=== PATIENT | male | born 2000 | race Two or more races ===

== ENCOUNTER 2020-05-11 12:25 | Emergency (ER) | payer MEDICAID, OTHER ==
[~2020-05-11] VITALS: Ht 182.9 cm; Wt 83.9 kg
[2020-05-11 13:56] VITALS: BP 120/71
== END 2020-05-11 14:28 | disposition home or self-care (01) ==
LOC: ER 12:25
DX: S61.210A Laceration without foreign body of right index finger without damage to nail, initial encounter (principal); W26.8XXA Contact with other sharp object(s), not elsewhere classified, initial encounter; Y93.89 Activity, other specified; Y92.89 Other specified places as the place of occurrence of the external cause; Y99.8 Other external cause status
CPT/HCPCS: 12001

== ENCOUNTER 2021-01-07 07:10 | Emergency (ER) | payer MEDICAID, OTHER ==
[~2021-01-07] VITALS: Ht 185.4 cm; Wt 81.6 kg
[2021-01-07 07:42] VITALS: BP 115/64
== END 2021-01-07 08:02 | disposition home or self-care (01) ==
LOC: ER 07:10
DX: S43.402A Unspecified sprain of left shoulder joint, initial encounter (principal); F17.210 Nicotine dependence, cigarettes, uncomplicated; V49.9XXA Car occupant (driver) (passenger) injured in unspecified traffic accident, initial encounter; Y93.89 Activity, other specified; Y92.89 Other specified places as the place of occurrence of the external cause; Y99.8 Other external cause status
CPT/HCPCS: 73030

== ENCOUNTER 2025-06-11 10:36 | Inpatient (IN) | payer MEDICAID, OTHER ==
[~2025-06-11] VITALS: Ht 180.3 cm; Wt 88.3 kg
[2025-06-11 11:27] LABS: Urine Protein, UAD Negative (Negative)
[2025-06-11 11:33] LABS: Cannabinoid Screen, Urine Pos (NEGATIVE); Opiate Scree,Urine Neg (NEGATIVE)
[2025-06-11 11:38] LABS: Hematocrit 45.4 % (41.0-53.0); Hemoglobin 15.6 g/dL (13.5-17.5); Mean Corpuscular Hemoglobin 29.9 pg (28.0-32.0); Mean Corpuscular Volume 87.3 fL (80.0-100.0); Nucleated Red Blood Cells % 0.1 %
[2025-06-11 11:40] LABS: Amphetamine Screen, Urine Neg (NEGATIVE); Barbiturate Scree,Urine Neg (NEGATIVE); Benzodiazephine Screen, Urine Neg (NEGATIVE); Cocaine Screen, Urine Neg (NEGATIVE); Phencyclidine Screen, Urine Neg (NEGATIVE)
--- NOTE | 2025-06-11 11:42 | ED.PDOC ---
GI ASSESSMENT HPI Comments Patient is a 24-year-old male with no significant past medical history presented to the ED with a chief complaint of abdominal pain for the last 2 days. Patient reports on Wednesday morning he started to have right lower quadrant abdominal pain which was sharp, crampy, nonradiating, severe in intensity following which she took ibuprofen and it helped relieve the pain associated with the loose bowel movements. Patient again had pain at the same spot on Wednesday following which she took [place] and it improved the pain but he still had the pain throughout the day. Today again in the morning patient has started to have right lower quadrant abdominal pain following which she came to the ER for further evaluation. Patient denied any nausea, vomiting, fever or chills. Does report of having loose bowel movements in the last 2 days, denies any blood in the stool. Chief Complaint: Abdominal Pain Time Seen by MD: 10:59 Primary Care Provider: ABBY RIVERA Reviewed Notes: Nurses Notes, Medications, Allergies Allergies: Coded Allergies: No Known Drug Allergy (Verified Allergy, Unknown, 01/07/21) Information Source: Patient Mode of Arrival: Ambulatory Past Medical History PAST MEDICAL HISTORY: Denies Surgical History: Denies all surgeries Family History Family History: Reviewed,noncontributory to illness Social History Smoker: Cigarettes Alcohol: Denies ETOH Use Drugs: Marijuana Lives In: Home Constitutional: denies: chills, diaphoresis, fatigue, fever, malaise, sweats, weakness, others EENTM: denies: blurred vision, double vision, ear bleeding, ear discharge, ear drainage, ear pain, ear ringing, eye pain, eye redness, hearing loss, mouth pain, mouth swelling, nasal discharge, nose bleeding, nose congestion, nose pain, photophobia, tearing, throat pain, throat swelling, voice changes, others Respiratory: denies: cough, hemoptysis, orthopnea, SOB at rest, shortness of breath, SOB with excertion, stridor, wheezing, others Cardiovascular: denies: chest pain, dizzy spells, diaphoresis, Dyspnea on exertion, edema, irregular heart beat, left arm pain, lightheadedness, palpitations, PND, syncope, others Gastrointestinal: reports: abdominal pain, diarrhea Genitourinary: denies: burning, dysuria, flank pain, frequency, hematuria, incontinence, penile discharge, penile sore, pain, testicle pain, testicle swelling, urgency, others Neurological: denies: dizziness, fainting, headache, left sided numbness, left sided weakness, numbness, paresthesia, pre-existing deficit, right sided numbness, right sided weakness, seizure, speech problems, tingling, tremors, weakness, others Musculoskeletal: denies: back pain, gout, joint pain, joint swelling, muscle pain, muscle stiffness, neck pain, others Integumetry: denies: bruises, change in color, change in hair/nails, dryness, laceration, lesions, lumps, rash, wounds, others Allergic/Immunocompromised: denies: Difficulty Healing, Frequent Infections, Hives, Itching, others Hematologic/Lymphatic: denies: anemia, blood clots, easy bleeding, easy bruising, swollen glands, others Endocrine: denies: excessive hunger, excessive sweating, excessive thirst, excessive urination, flushing, intolerance to cold, intolerance to heat, unexplained weight gain, unexplained weight loss, others Psychiatric: denies: anxiety, bipolar disorder, depression, hopeless, panic disorder, schizophrenia, sleepless, suicidal, others Physical Exam General Appearance: No Apparent Distress, Normal HEENT: Normal ENT Inspection, Pharynx Normal, TMs Normal Neck: Full Range of Motion, Non-Tender, Normal, Normal Inspection Respiratory: Chest Non-Tender, Lungs Clear, No Accessory Muscle Use, No Respiratory Distress, Normal Breath Sounds Cardiovascular: No Edema, No JVD, No Murmur, No Gallop, Normal Peripheral Pulses, Regular Rate/Rhythm Breast Exam: Deferred Gastrointestinal: RLQ, Tenderness (At the McBurney's point), Other (Negative Rovsing sign, psoas sign, no guarding or rebound tenderness) Genitalia: Deferred Pelvic: Deferred Rectal: Deferred Extremities: No calf tenderness, Normal capillary refill, Normal inspection, Normal range of motion, Non-tender, No pedal edema 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 Was a procedure done?: No GI differential Dx Differential Diagnosis: Appendicitis, Diverticular disease, Gastroenteritis, Urinary Obstruction, Food Poisoning, Kidney Stone X-Ray, Labs, Meds, VS Vital Signs Date Time Temp Pulse Resp B/P (MAP) Pulse Ox O2 Delivery O2 Flow Rate FiO2 06/11/25 13:34 98.0 88 17 132/87 (102) 97 98.0 06/11/25 13:34 86 16 97 Room Air 06/11/25 10:48 97.8 86 16 123/69 (87) 98 97.8 06/11/25 10:43 97.8 86 16 123/69 (87) 98 97.8 Lab Test 06/11/25 11:13 06/11/25 10:00 Range/Units White Blood Count 5.7 4.4-10.8 10^3/uL Red Blood Count 5.20 4.5-5.90 10^6/uL Hemoglobin 15.6 13.5-17.5 g/dL Hematocrit 45.4 41.0-53.0 % Mean Corpuscular Volume 87.3 80.0-100.0 fL Mean Corpuscular Hemoglobin 29.9 28.0-32.0 pg Mean Corpuscular Hemoglobin Concent 34.3 32.0-36.0 g/dL Red Cell Distribution Width 13.6 11.8-14.3 % Platelet Count 182 140-450 10^3/uL Mean Platelet Volume 8.4 6.9-10.8 fL Neutrophils (%) (Auto) 64.2 37.0-80.0 % Lymphocytes (%) (Auto) 26.9 10.0-50.0 % Monocytes (%) (Auto) 7.5 0.0-12.0 % Eosinophils (%) (Auto) 1.0 0.0-7.0 % Basophils (%) (Auto) 0.4 0.0-2.0 % Neutrophils # (Auto) 3.7 1.6-8.6 10 ^3/uL Lymphocytes # (Auto) 1.5 0.4-5.4 10 ^3/uL Monocytes # (Auto) 0.4 0-1.3 10 ^3/uL Eosinophils # (Auto) 0.1 0-0.8 10 ^3/uL Basophils # (Auto) 0 0-0.2 10 ^3/uL Nucleated Red Blood Cells 0.1 % Sodium Level 142 136-145 mmol/L Potassium Level 4.2 3.5-5.1 mmol/L Chloride Level 108 H 98-107 mmol/L Carbon Dioxide Level 26 20-31 mmol/L Anion Gap 8 5-15 Blood Urea Nitrogen 7 L 9-23 mg/dL Creatinine 0.82 0.700-1.30 mg/dL Glomerular Filtration Rate Calc 124 >90 mL/min BUN/Creatinine Ratio 8.5 L 10.0-20.0 Serum Glucose 92 74-106 mg/dL Calcium Level 9.8 8.7-10.4 mg/dL Urine Color Light-yellow Yellow Urine Clarity Clear Clear Urine pH 5.5 5.0-9.0 Urine Specific [place] 1.017 1.001-1.035 Urine Protein Negative Negative Urine Ketones Negative Negative Urine Blood Negative Negative /uL Urine Nitrite Negative Negative Urine Bilirubin Negative Negative Urine Urobilinogen Normal Negative mg/dL Urine Leukocyte Esterase Negative Negative /uL Urine RBC 2 0 - 3 /hpf Urine Microscopic WBC 2 0-3 /HPF Urine Squamous Epithelial Cells Few <5 /hpf Urine Bacteria None seen None Seen /hpf Urine Mucus Few None Seen Urine Glucose Normal Normal mg/dL Urine Opiates Screen Neg NEGATIVE Urine Fentanyl Screen Neg NEGATIVE Urine Barbiturates Screen Neg NEGATIVE Urine Phencyclidine Screen Neg NEGATIVE Urine Amphetamines Screen Neg NEGATIVE Urine Benzodiazepines Screen Neg NEGATIVE Urine Cocaine Screen Neg NEGATIVE Urine Cannabinoids Screen Pos NEGATIVE Current Medications Medications (Trade) Dose Ordered Sig/Miguel Route Start Time Stop Time Status Last Admin Ibuprofen (Motrin Tablet) 600 mg ONCE ONCE PO 06/11/25 12:45 06/11/25 12:55 DC 06/11/25 13:18 24-year-old male came in with a right lower quadrant pain, on examination tenderness at the McBurney's point but no rebound tenderness or guarding, CT abdomen without contrast shows moderate right hydronephrosis and 4 mm ureteric calculus with bilateral renal nonobstructive calculi , CBC was grossly normal, BMP was grossly normal, urinalysis was grossly normal. Patient will be admitted and will need further inpatient management as he has moderate hydronephrosis and urology consulted. Patient has been 1 dose of tamsulosin 0.4 mg and IV fluids. Time of 1ST Reevaluation: 13:09 Reevaluation 1ST: Unchanged Patient Education/Counseling: Diagnosis, Treatment Family Education/Counseling: No Family Present SEPSIS Sepsis Screen Date sepsis recognized/suspect: Jun 11, 2025 Time Sepsis recognized/suspect: 1036 Recent Procedure: No On Antibiotic Therapy: No Respiratory Rate >20: No Heart Rate >90: No Temp<36 C (96.8 F) or >38.3 C: No SBP <90 or MAP <65 mmHG: No New Acute Mental Status Change: No Is the patient on CPAP, BIPAP,: No Physician Orders Ct Ab Pel Wo Con-No Oral Or Iv (06/11/25 11:05) Heplock Iv (06/11/25 ) Tamsulosin Hydrochloride (Flomax) (06/11/25 13:45) NS (06/11/25 13:45) Vital Signs Date Time Temp Pulse Resp B/P (MAP) Pulse Ox O2 Delivery O2 Flow Rate FiO2 06/11/25 13:34 98.0 88 17 132/87 (102) 97 98.0 06/11/25 13:34 86 16 97 Room Air 06/11/25 10:48 97.8 86 16 123/69 (87) 98 97.8 06/11/25 10:43 97.8 86 16 123/69 (87) 98 97.8 Laboratory Tests Test 06/11/25 11:13 White Blood Count 5.7 10^3/uL (4.4-10.8) Medications Medications Dose Ordered Sig/Miguel Route Start Time Stop Time Status Last Admin Dose Admin Ibuprofen 600 mg ONCE ONCE PO 06/11/25 12:45 06/11/25 12:55 DC 06/11/25 13:18 Departure 1 Departure Time of Disposition: 13:41 Impression: Primary Impression: Ureteric calculus Additional Impressions: Hydronephrosis, right Abdominal pain Nephrolithiasis Disposition: ADMITTED INPATIENT Condition: Stable Critical Care Note Critical Care Time?: No Stability Stability form required: No Heart Score Heart Score: Heart Score Response (Comments) Value History N/A 0 EKG N/A 0 Age N/A 0 Risk Factors N/A 0 Troponin N/A 0 Total 0 ALEXANDER PANDA RESIDENT Jun 11, 2025 11:42
--- NOTE | 2025-06-11 11:45 | DVH ---
Indication: RLQ abd pain, tender mcburney Technique: CT axial images of the abdomen and pelvis are obtained without contrast. Coronal and sagit [place] reformats were obtained. Radiation Dose Information: CTDI volume is 11.11 mGy. Dose-length product is 603.95 mGy*cm Comparison: None FINDINGS: There is limited interpretation of the abdomen and pelvis without administration of intravenous contr ast. Lung bases demonstrate no pleural effusion. Adrenal glands, spleen, pancreas unremarkable in shape. Liver unremarkable in shape. No CT evidence for cholelithiasis. The right kidney demonstrates moderate right hydroureteronephrosis secondary to a proximal right uret eral calculus measuring 4 mm. Other nonobstructing right renal calculi up to 2 mm. Nonobstructing lef t renal calculi up to 3 mm. Stomach is partially distended. Small bowel loops are normal in caliber. Moderate volume stool in the colon. Normal appendix. Colonic diverticula. Bladder partially distended. Bladder wall thickening with surrounding stranding. Trace free pelvic fl uid. No inguinal lymphadenopathy. No aggressive osseous process. IMPRESSION: Moderate right hydroureteronephrosis secondary to a 4 mm proximal right ureteral calculus. Other nono bstructing bilateral renal calculi as described. Bladder wall thickening with surrounding stranding likely representing cystitis. Small amount of free pelvic fluid. Colonic diverticula Other findings as described.
[2025-06-11 11:47] LABS: Potassium 4.2 mmol/L (3.5-5.1); Sodium 142 mmol/L (136-145)
[2025-06-11 11:48] LABS: Calcium 9.8 mg/dL (8.7-10.4); Chloride 108 mmol/L (98-107)
[2025-06-11 11:53] LABS: BUN/Creatinine Ratio 8.5 (10.0-20.0); Glucose 92 mg/dL (74-106)
[2025-06-11 11:54] LABS: Blood Urea Nitrogen 7 mg/dL (9-23)
[2025-06-11 12:08] LABS: Anion Gap 8 (5-15); Carbon Dioxide 26 mmol/L (20-31)
[2025-06-11] MEDS: IBUPROFEN 600 MG TAB PO ONE (13:18)
[2025-06-11] MEDS: SODIUM CHLORIDE 0.9% 1,000 ML IV ONE ×2 (14:10→16:15)
[2025-06-11] MEDS: TAMSULOSIN HYDROCHLORIDE 0.4 MG CAP PO ONE (14:10)
[2025-06-11] MEDS: MANNITOL FTV 25% 12.5 GM/50 ML 50 ML IV ONE (16:15)
--- NOTE | 2025-06-11 16:22 | DVHINCON2 ---
Date of service: Jun 11, 2025 Referring Physician Hospitalist Reason for Consultation right ureteral stone History of Present Illness History Source: Patient Exam Limitations: No limitations HPI 24 yo male with sudden onset right flank pain. No urinary complaint. No fever, chills, headache, nausea or diarrhea. No prior history. CT shows a 4 mm proximal stone with mild hydro. No evidence of UTI. No WILIAN. Past Medical History Cardiac: No pertinent Hx Pulmonary: No pertinent Hx Central Nervous System: No pertinent Hx GI: No pertinent Hx Hemotology/Oncology: No pertinent Hx Hepatobiliary: No pertinent Hx Psychiatric: No pertinent Hx Musculoskeletal: No pertinent Hx Rheumotologic: No pertinent Hx Infectious Disease: No peritnent Hx ENT: No pertinent Hx Renal/: No pertinent Hx Endocrine: No pertinent Hx Dermatology: No pertinent Hx Review of Systems Genitourinary: Pain H&P Exam Vital Signs Vital Signs Date Time Temp Pulse Resp B/P (MAP) Pulse Ox O2 Delivery O2 Flow Rate FiO2 06/11/25 13:34 98.0 88 17 132/87 (102) 97 98.0 06/11/25 13:34 Room Air General Appeara: Well developed, Well nourished, Normal Appearance, Mild distress Eye Exam: bilateral eye Normal inspection, bilateral eye PERRL, bilateral eye EOMI Ear Exam: bilateral ear Auricle normal, bilateral ear Canal normal, bilateral ear TM normal Pulmonary/Respiratory: Normal inspection, Normal breath sounds, Chest non- tender, Lungs clear Cardiovascular/Chest: Normal inspection, Regular rate, Normal Rhythm Abdominal Exam: Normal bowel sounds, Soft, No tenderness, No hepatospenomegaly, No masses Back Exam: Right CVA tenderness Neuro/Mental St: Alert, Oriented Appearance: Appropriate appearance, Appropriate insight Eye contact/ Speech: Cooperative, Good eye contact, Normal speech Skin Exam: Normal inspection, Normal color, Warm/dry Labs/Xrays [address] [address] Ph: [phone] DIAGNOSTIC IMAGING Diagnostic Imaging Report : [id number] Signed PATIENT: KARAN SMITH ACCT: [id number] UNIT: [id number] : 2000 LOC: ER ROOM / BED: / AGE / SEX: 24 / M ADM STATUS: REG ER SERVICE 1105 ORDERING PHYSICIAN: ALEXANDER PANDA RESIDENT PROCEDURE(s): ABPL - CT AB PEL WO CON-NO ORAL OR IV REASON: RLQ abd pain, tender mcburney ORDER NUMBER(s): [id number], ACCESSION NUMBER(s): [id number] Indication: RLQ abd pain, tender mcburney Technique: CT axial images of the abdomen and pelvis are obtained without contrast. Coronal and sagittal reformats were obtained. Radiation Dose Information: CTDI volume is 11.11 mGy. Dose-length product is 603.95 mGy*cm Comparison: None FINDINGS: There is limited interpretation of the abdomen and pelvis without administration of intravenous contrast. Lung bases demonstrate no pleural effusion. Adrenal glands, spleen, pancreas unremarkable in shape. Liver unremarkable in shape. No CT evidence for cholelithiasis. The right kidney demonstrates moderate right hydroureteronephrosis secondary to a proximal right ureteral calculus measuring 4 mm. Other nonobstructing right renal calculi up to 2 mm. Nonobstructing left renal calculi up to 3 mm. Stomach is partially distended. Small bowel loops are normal in caliber. Moderate volume stool in the colon. Normal appendix. Colonic diverticula. Bladder partially distended. Bladder wall thickening with surrounding stranding. Trace free pelvic fluid. No inguinal lymphadenopathy. No aggressive osseous process. IMPRESSION: Moderate right hydroureteronephrosis secondary to a 4 mm proximal right ureteral calculus. Other nonobstructing bilateral renal calculi as described. Bladder wall thickening with surrounding stranding likely representing cystitis. Small amount of free pelvic fluid. Colonic diverticula Other findings as described. ATED BY: DALLAS RATLIFF MD DICTATED DATE/TIME: 06/11/25 1144 SIGNED BY: DALLAS RATLIFF MD SIGNED DATE/TIME: 06/11/25 1144 CC: Labs Test 06/11/25 11:13 06/11/25 10:00 Range/Units White Blood Count 5.7 4.4-10.8 10^3/uL Red Blood Count 5.20 4.5-5.90 10^6/uL Hemoglobin 15.6 13.5-17.5 g/dL Hematocrit 45.4 41.0-53.0 % Mean Corpuscular Volume 87.3 80.0-100.0 fL Mean Corpuscular Hemoglobin 29.9 28.0-32.0 pg Mean Corpuscular Hemoglobin Concent 34.3 32.0-36.0 g/dL Red Cell Distribution Width 13.6 11.8-14.3 % Platelet Count 182 140-450 10^3/uL Mean Platelet Volume 8.4 6.9-10.8 fL Neutrophils (%) (Auto) 64.2 37.0-80.0 % Lymphocytes (%) (Auto) 26.9 10.0-50.0 % Monocytes (%) (Auto) 7.5 0.0-12.0 % Eosinophils (%) (Auto) 1.0 0.0-7.0 % Basophils (%) (Auto) 0.4 0.0-2.0 % Neutrophils # (Auto) 3.7 1.6-8.6 10 ^3/uL Lymphocytes # (Auto) 1.5 0.4-5.4 10 ^3/uL Monocytes # (Auto) 0.4 0-1.3 10 ^3/uL Eosinophils # (Auto) 0.1 0-0.8 10 ^3/uL Basophils # (Auto) 0 0-0.2 10 ^3/uL Nucleated Red Blood Cells 0.1 % Sodium Level 142 136-145 mmol/L Potassium Level 4.2 3.5-5.1 mmol/L Chloride Level 108 H 98-107 mmol/L Carbon Dioxide Level 26 20-31 mmol/L Anion Gap 8 5-15 Blood Urea Nitrogen 7 L 9-23 mg/dL Creatinine 0.82 0.700-1.30 mg/dL Glomerular Filtration Rate Calc 124 >90 mL/min BUN/Creatinine Ratio 8.5 L 10.0-20.0 Serum Glucose 92 74-106 mg/dL Calcium Level 9.8 8.7-10.4 mg/dL Urine Color Light-yellow Yellow Urine Clarity Clear Clear Urine pH 5.5 5.0-9.0 Urine Specific [place] 1.017 1.001-1.035 Urine Protein Negative Negative Urine Ketones Negative Negative Urine Blood Negative Negative /uL Urine Nitrite Negative Negative Urine Bilirubin Negative Negative Urine Urobilinogen Normal Negative mg/dL Urine Leukocyte Esterase Negative Negative /uL Urine RBC 2 0 - 3 /hpf Urine Microscopic WBC 2 0-3 /HPF Urine Squamous Epithelial Cells Few <5 /hpf Urine Bacteria None seen None Seen /hpf Urine Mucus Few None Seen Urine Glucose Normal Normal mg/dL Urine Opiates Screen Neg NEGATIVE Urine Fentanyl Screen Neg NEGATIVE Urine Barbiturates Screen Neg NEGATIVE Urine Phencyclidine Screen Neg NEGATIVE Urine Amphetamines Screen Neg NEGATIVE Urine Benzodiazepines Screen Neg NEGATIVE Urine Cocaine Screen Neg NEGATIVE Urine Cannabinoids Screen Pos NEGATIVE Assessment/Plan Problem List: (1) Ureteric calculus (2) Hydronephrosis, right Plan expulsive measures aggressive fluids strain urine pain meds Plan discussed with: Patient, Other ALONDRA CHAUDHARI CHIEF DATA OFFICER Jun 11, 2025 16:22
[2025-06-11 16:39] VITALS: BP 131/74; PULSE 60; RESP 20; TEMP 98.3; O2SAT 97
[2025-06-11 16:40] VITALS: BP 131/74; PULSE 60; RESP 20; TEMP 98.3; O2SAT 97
[2025-06-11] MEDS: HYDROmorphone HCL 2 MG/ML VL/or syr IV PRN (18:12)
--- NOTE | 2025-06-11 19:49 | DVHHPRES ---
History of Present Illness Resident Creating Document: SAMANTHA VILLELA RESIDENT History of Present Illness Patient is a 24-year-old male who has a past medical history of asthma, presents to the ED with chief complaint of abdominal pain since the last 2 days. The pain is in the right lower quadrant radiating to the right flank,, crampy, 8/10 intensity, did not improve on taking ibuprofen. Patient had the same pain on Wednesday but he took [place] and it improved the pain but today morning the pain started again in the right lower quadrant after which he came to the ER for further evaluation. Patient denies any nausea, fever, chills, vomiting, constipation, but he complains of having diarrhea since 2 days. He does not complain of dysuria, urgency, frequency, he also denies any blood in the urine. He has no known drug allergies. Surgical history: wrist surgery with 2 pins placed Family history: Noncontributory Personal history: Patient smokes 2 cigarettes per day since 16 years old, drinks alcohol socially, uses marijuana every day since 16 years old Constitutional: Denies weight loss, fever and chills. HEENT: Denies changes in vision and hearing. Respiratory: Denies shortness of breath and cough Cardiovascular: Denies chest discomfort or palpitations GI: right lower quadrant pain, Diarrhea : Denies dysuria and urinary frequency. Musculoskeletal: Denies myalgias and joint pain Skin: Denies rash and pruritus. Neurological: Denies dizziness, headache, vision or hearing problems Pulmonary: Asthma Review of Systems Allergies: Coded Allergies: No Known Drug Allergy (Verified Allergy, Unknown, 01/07/21) Medications Current Medications Medications Dose Ordered Sig/Miguel Route Start Time Stop Time Status Last Admin Dose Admin Acetaminophen/ Hydrocodone Bitart 1 tab Q4HPRN PRN PO 06/11/25 16:15 Hydromorphone HCl 0.25 mg Q6HPRN PRN IV 06/11/25 16:15 06/11/25 18:12 0.25 MG Ketorolac Tromethamine 30 mg Q8HPRN PRN IV 06/11/25 16:15 06/16/25 16:14 Tamsulosin HCl 0.4 mg QPM PO 06/12/25 18:00 Exam Vital Signs Vital Signs Date Time Temp Pulse Resp B/P (MAP) Pulse Ox O2 Delivery O2 Flow Rate FiO2 06/11/25 18:12 83 20 130/73 06/11/25 16:40 98.3 97 98.3 06/11/25 13:34 Room Air Exam General: Patient alert and oriented in person, place and time. Patient following commands. HEENT: Normocephalic, atraumatic, moist mucous membranes Respiratory/pulmonary: Clear lungs bilaterally, vesicular murmurs present in almost all lung ang, no associated crackles or wheezes. Cardiovascular: Normal heart sounds S1 and S2 with no associated murmurs Abdomen: Abdomen nondistended, there is pain to palpation in Right Lower Quadrant, no palpable masses. Extremities: There is no peripheral edema present at the lower extremities. Peripheral Pulses: 3+ Radial (R). 3+ Radial (L). 3+ Dorsalis pedis (R). 3+ Dorsalis pedis(L) Skin: No rashes or pruritus, there is no sacral edema present at this time. Neurological: Intact cranial nerves with no focal neurologic deficits Labs/Xrays Labs Test 06/11/25 11:13 06/11/25 10:00 Range/Units White Blood Count 5.7 4.4-10.8 10^3/uL Red Blood Count 5.20 4.5-5.90 10^6/uL Hemoglobin 15.6 13.5-17.5 g/dL Hematocrit 45.4 41.0-53.0 % Mean Corpuscular Volume 87.3 80.0-100.0 fL Mean Corpuscular Hemoglobin 29.9 28.0-32.0 pg Mean Corpuscular Hemoglobin Concent 34.3 32.0-36.0 g/dL Red Cell Distribution Width 13.6 11.8-14.3 % Platelet Count 182 140-450 10^3/uL Mean Platelet Volume 8.4 6.9-10.8 fL Neutrophils (%) (Auto) 64.2 37.0-80.0 % Lymphocytes (%) (Auto) 26.9 10.0-50.0 % Monocytes (%) (Auto) 7.5 0.0-12.0 % Eosinophils (%) (Auto) 1.0 0.0-7.0 % Basophils (%) (Auto) 0.4 0.0-2.0 % Neutrophils # (Auto) 3.7 1.6-8.6 10 ^3/uL Lymphocytes # (Auto) 1.5 0.4-5.4 10 ^3/uL Monocytes # (Auto) 0.4 0-1.3 10 ^3/uL Eosinophils # (Auto) 0.1 0-0.8 10 ^3/uL Basophils # (Auto) 0 0-0.2 10 ^3/uL Nucleated Red Blood Cells 0.1 % Sodium Level 142 136-145 mmol/L Potassium Level 4.2 3.5-5.1 mmol/L Chloride Level 108 H 98-107 mmol/L Carbon Dioxide Level 26 20-31 mmol/L Anion Gap 8 5-15 Blood Urea Nitrogen 7 L 9-23 mg/dL Creatinine 0.82 0.700-1.30 mg/dL Glomerular Filtration Rate Calc 124 >90 mL/min BUN/Creatinine Ratio 8.5 L 10.0-20.0 Serum Glucose 92 74-106 mg/dL Calcium Level 9.8 8.7-10.4 mg/dL Urine Color Light-yellow Yellow Urine Clarity Clear Clear Urine pH 5.5 5.0-9.0 Urine Specific [place] 1.017 1.001-1.035 Urine Protein Negative Negative Urine Ketones Negative Negative Urine Blood Negative Negative /uL Urine Nitrite Negative Negative Urine Bilirubin Negative Negative Urine Urobilinogen Normal Negative mg/dL Urine Leukocyte Esterase Negative Negative /uL Urine RBC 2 0 - 3 /hpf Urine Microscopic WBC 2 0-3 /HPF Urine Squamous Epithelial Cells Few <5 /hpf Urine Bacteria None seen None Seen /hpf Urine Mucus Few None Seen Urine Glucose Normal Normal mg/dL Urine Opiates Screen Neg NEGATIVE Urine Fentanyl Screen Neg NEGATIVE Urine Barbiturates Screen Neg NEGATIVE Urine Phencyclidine Screen Neg NEGATIVE Urine Amphetamines Screen Neg NEGATIVE Urine Benzodiazepines Screen Neg NEGATIVE Urine Cocaine Screen Neg NEGATIVE Urine Cannabinoids Screen Pos NEGATIVE SEPSIS Sepsis Screen Date sepsis recognized/suspect: Jun 11, 2025 Time Sepsis recognized/suspect: 1036 Recent Procedure: No On Antibiotic Therapy: No Respiratory Rate >20: No Heart Rate >90: No Temp<36 C (96.8 F) or >38.3 C: No SBP <90 or MAP <65 mmHG: No New Acute Mental Status Change: No Is the patient on CPAP, BIPAP,: No Physician Orders [place] Iv (06/11/25 ) * Urology Consult (06/11/25 13:47) Admit (06/11/25 15:43) Hydrocodone-Acet 5/325mg Tab ([place] 5/32 (06/11/25 16:15) Hydromorphone Injection (Dilaudid Inject (06/11/25 16:15) Ketorolac Injection (Toradol Injection) (06/11/25 16:15) Strain All Urine (06/11/25 ) Tamsulosin Hydrochloride (Flomax) (06/12/25 18:00) Clear Liq Diet (06/12/25 Dinner) Npo (Nothing By Mouth) Diet (06/12/25 Breakfast) Vital Signs Date Time Temp Pulse Resp B/P (MAP) Pulse Ox O2 Delivery O2 Flow Rate FiO2 06/11/25 18:12 83 20 130/73 06/11/25 16:40 98.3 60 20 131/74 (93) 97 98.3 06/11/25 16:39 98.3 60 20 131/74 (93) 97 98.3 06/11/25 13:34 98.0 88 17 132/87 (102) 97 98.0 06/11/25 13:34 86 16 97 Room Air Laboratory Tests Test 06/11/25 11:13 White Blood Count 5.7 10^3/uL (4.4-10.8) Medications Medications Dose Ordered Sig/Miguel Route Start Time Stop Time Status Last Admin Dose Admin Hydromorphone HCl 0.25 mg Q6HPRN PRN IV 06/11/25 16:15 06/11/25 18:12 0.25 MG Ibuprofen 600 mg ONCE ONCE PO 06/11/25 12:45 06/11/25 12:55 DC 06/11/25 13:18 600 MG Mannitol 50 ml @ 50 mls/hr ONCE ONCE IV 06/11/25 16:15 06/11/25 17:14 DC 06/11/25 16:15 50 MLS/HR Sodium Chloride 1,000 ml @ 1,000 mls/hr Q1H ONCE IV 06/11/25 13:45 06/11/25 14:44 DC 06/11/25 14:10 1,000 MLS/HR Sodium Chloride 1,000 ml @ 1,000 mls/hr Q1H ONCE IV 06/11/25 16:15 06/11/25 17:14 DC 06/11/25 16:15 1,000 MLS/HR Tamsulosin HCl 0.4 mg ONCE ONCE PO 06/11/25 13:45 06/11/25 13:46 DC 06/11/25 14:10 0.4 MG Assessment/Plan Assessment/Plan #Bilateral nephrolithiasis with right-sided hydrouretronephrosis - Abdominal CT shows : Moderate right hydroureteronephrosis secondary to a 4 mm proximal right ureteral calculus, Other nonobstructing bilateral renal calculi as described.Bladder wall thickening with surrounding stranding likely repre senting cystitis, Small amount of free pelvic fluid, Colonic diverticula - urology evaluated the patient and possible ESWL tomorrow -patient is on clear liquid diet and NPO after midnight -tamsulosin 0.4 mg p.o. at HS - IV mannitol given to strain urine -IV Toradol 30 mg Q 8 p.r.n., IV hydromorphone 0.25 mg q.6 p.r.n. and [place] 5/325 mg q.4 PRN for pain # history of bronchial asthma - nebulized albuterol as needed # polysubstance abuse disorder -comes in patient regarding cessation and rehabilitation Goals of care discussed with the patient for more than 18 minutes full code Plan discussed with Dr. Browning Plan discussed with: Patient My Orders Orders - SAMANTHA VILLELA Procedure Category Date Status Time Tamsulosin PHA 06/12/25 In Process Hydrochloride (Flomax) 18:00 Clear Liq Diet DIET 06/12/25 Transmitted Dinner Npo (Nothing By DIET 06/12/25 Transmitted Mouth) Diet Breakfast Date of Service: Jun 12, 2025 Billing Provider: SOILA BROWNING MD Common Visit Codes: [id number] INP/OBS CARE (HIGH) SAMANTHA VILLELA Jun 11, 2025 19:49 SOILA BROWNING MD Jun 13, 2025 21:37
[2025-06-11 20:30] VITALS: BP 115/64; PULSE 61; RESP 14; TEMP 99.1; O2SAT 98
[2025-06-11] MEDS: HYDROcodone-ACET 5/325MG TAB PO PRN (22:21)
[2025-06-12 01:00] VITALS: BP 95/55; PULSE 50; RESP 20; TEMP 97.1; O2SAT 96
[2025-06-12 05:00] VITALS: BP 98/61; PULSE 52; RESP 19; TEMP 97.3; O2SAT 99
[2025-06-12 07:22] LABS: Hematocrit 43.1 % (41.0-53.0); Hemoglobin 14.5 g/dL (13.5-17.5); Mean Corpuscular Hemoglobin 29.4 pg (28.0-32.0); Mean Corpuscular Volume 87.3 fL (80.0-100.0); Nucleated Red Blood Cells % 0.1 %
[2025-06-12 07:33] LABS: Potassium 4.1 mmol/L (3.5-5.1); Sodium 142 mmol/L (136-145)
[2025-06-12 07:34] LABS: Anion Gap 8 (5-15); Carbon Dioxide 25 mmol/L (20-31)
[2025-06-12 07:35] LABS: Calcium 9.1 mg/dL (8.7-10.4)
[2025-06-12 07:40] LABS: BUN/Creatinine Ratio 8.3 (10.0-20.0); Glucose 90 mg/dL (74-106)
[2025-06-12 07:41] LABS: Blood Urea Nitrogen 6 mg/dL (9-23); Chloride 109 mmol/L (98-107)
[2025-06-12 09:00] VITALS: BP 105/68; PULSE 56; RESP 14; TEMP 98; O2SAT 98
[2025-06-12] MEDS: KETOROLAC TROMETH 30 MG/ML 1ML VIAL IV PRN (10:44)
--- NOTE | 2025-06-12 10:54 | DVHPNRES ---
Progress Note Date Seen: Jun 12, 2025 Resident Creating Document: SAMANTHA VILLELA RESIDENT Medical Necessity Reason Pt with a Central, PICC or Fol: No Subjective Review of Systems Patient is a 24-year-old male who has a past medical history of asthma, presents to the ED with chief complaint of abdominal pain since the last 2 days. The pain is in the right lower quadrant radiating to the right flank,, crampy, 8/10 intensity, did not improve on taking ibuprofen. Patient had the same pain on Wednesday but he took [place] and it improved the pain but today morning the pain started again in the right lower quadrant after which he came to the ER for further evaluation. Patient denies any nausea, fever, chills, vomiting, constipation, but he complains of having diarrhea since 2 days. He does not complain of dysuria, urgency, frequency, he also denies any blood in the urine. He has no known drug allergies. Patient seen at bedside. He appears comfortable, alert x3, complains of mild, 4/10 right flank, and right lower abdominal quadrant pain which "comes and goes" and had 1 episode of diarrhea. Patient denies any nausea, vomiting, dizziness, headaches. Patient does not complain pain during urination or blood in the urine. Patient is changed from clear liquid diet to regular diet and is tolerating well. Urology on board and recommenced possible lithotripsy if no improvement. Objective vital signs Vital Sign Date Time Temp Pulse Resp B/P (MAP) Pulse Ox O2 Delivery O2 Flow Rate FiO2 06/12/25 09:00 98.0 56 14 105/68 (80) 98 98.0 06/12/25 08:25 Room Air* 0 21 Total Intake and Output 06/11/25 06/11/25 06/12/25 15:00 23:00 07:00 Intake Total 1700 ml 200 ml Output Total 400 ml Balance 1700 ml -200 ml medications Current Medications Medications Dose Ordered Sig/Miguel Route Start Time Stop Time Status Last Admin Dose Admin Acetaminophen/ Hydrocodone Bitart 1 tab Q4HPRN PRN PO 06/11/25 16:15 06/11/25 22:21 1 TAB Hydromorphone HCl 0.25 mg Q6HPRN PRN IV 06/11/25 16:15 06/11/25 18:12 0.25 MG Ketorolac Tromethamine 30 mg Q8HPRN PRN IV 06/11/25 16:15 06/16/25 16:14 06/12/25 10:44 30 MG Tamsulosin HCl 0.4 mg QPM PO 06/12/25 18:00 Examination General: Patient alert and oriented in person, place and time. Patient following commands. HEENT: Normocephalic, atraumatic, moist mucous membranes Respiratory/pulmonary: Clear lungs bilaterally, vesicular murmurs present in almost all lung ang, no associated crackles or wheezes. Cardiovascular: Normal heart sounds S1 and S2 with no associated murmurs Abdomen: Abdomen nondistended, there is pain to palpation in right lower Quadrant, and right flank , no palpable masses. Extremities: There is no peripheral edema present at the lower extremities. Peripheral Pulses: 3+ Radial (R). 3+ Radial (L). 3+ Dorsalis pedis (R). 3+ Dorsalis pedis(L) Skin: No rashes or pruritus, there is no sacral edema present at this time. Neurological: Intact cranial nerves with no focal neurologic deficits laboratory and microbiology Laboratory Tests 06/12/25 06:04 Test 06/12/25 06:04 Range/Units Serum Glucose 90 74-106 mg/dL Problem List/Assessment/Plan Problem List/Assessment/Plan #Bilateral nephrolithiasis with right-sided hydrouretronephrosis - Abdominal CT shows : Moderate right hydroureteronephrosis secondary to a 4 mm proximal right ureteral calculus, Other nonobstructing bilateral renal calculi as described.Bladder wall thickening with surrounding stranding likely representing cystitis, Small amount of free pelvic fluid, Colonic diverticula - Urology evaluated the patient and recommended ,expulsive measures, aggressive fluids, strain urine, pain meds, and possible lithotripsy if no improvement. - Patient is on clear liquid diet and switched to Regular diet - Tamsulosin 0.4 mg p.o. at HS - IV mannitol given to strain urine -IV Toradol 30 mg Q 8 p.r.n., IV hydromorphone 0.25 mg q.6 p.r.n. and [place] 5/325 mg q.4 PRN for pain # History of bronchial asthma - nebulized albuterol as needed # Polysubstance abuse disorder - counseled patient regarding cessation and rehabilitation Goals of care discussed with the patient for more than 19 minutes: full code Plan discussed with Dr. Browning Plan discussed with: Patient My Orders My Orders Orders - SAMANTHA VILLELA Procedure Category Date Status Time Tamsulosin PHA 06/12/25 In Process Hydrochloride (Flomax) 18:00 Clear Liq Diet DIET 06/12/25 Transmitted Dinner Regular Diet DIET 06/12/25 Transmitted Lunch Date of Service: Jun 12, 2025 Billing Provider: SOILA BROWNING MD Common Visit Codes: [id number] INP/OBS CARE(HIGH) SAMANTHA VILLELA Jun 12, 2025 10:54 SOILA BROWNING MD Jun 13, 2025 21:44
[2025-06-12 13:00] VITALS: BP 122/77; PULSE 69; RESP 14; TEMP 98.8; O2SAT 98
--- NOTE | 2025-06-12 13:37 | DVHPN2 ---
Progress Note - Dictate Date Seen: Jun 12, 2025 Medical Necessity Reason Pt with a Central, PICC or Fol: No Subjective still having pain vital signs Vital Sign Date Time Temp Pulse Resp B/P (MAP) Pulse Ox O2 Delivery O2 Flow Rate FiO2 06/12/25 09:00 98.0 56 14 105/68 (80) 98 98.0 06/12/25 08:25 Room Air* 0 21 Total Intake and Output 06/11/25 06/11/25 06/12/25 15:00 23:00 07:00 Intake Total 1700 ml 200 ml Output Total 400 ml Balance 1700 ml -200 ml medications Current Medications Medications Dose Ordered Sig/Miguel Route Start Time Stop Time Status Last Admin Dose Admin Acetaminophen/ Hydrocodone Bitart 1 tab Q4HPRN PRN PO 06/11/25 16:15 06/12/25 13:33 1 TAB Hydromorphone HCl 0.25 mg Q6HPRN PRN IV 06/11/25 16:15 06/11/25 18:12 0.25 MG Ketorolac Tromethamine 30 mg Q8HPRN PRN IV 06/11/25 16:15 06/16/25 16:14 06/12/25 10:44 30 MG Tamsulosin HCl 0.4 mg QPM PO 06/12/25 18:00 objective had dilaudid IV last night. Toradol didnt help laboratory and microbiology Laboratory Tests 06/12/25 06:04 Test 06/12/25 06:04 Range/Units Serum Glucose 90 74-106 mg/dL Assessment/Plan symptomatic small ureteral stone continue supportive care possible lithotripsy if no improvement Problems(with codes): (1) Nephrolithiasis (2) Ureteric calculus (3) Abdominal pain Plan discussed with: Patient, Other ALONDRA CHAUDHARI RESIDENTIAL REAL ESTATE ASSISTANT Jun 12, 2025 13:37
[2025-06-12 17:00] VITALS: BP 111/71; PULSE 54; RESP 14; TEMP 98; O2SAT 99
[2025-06-12] MEDS: TAMSULOSIN HYDROCHLORIDE 0.4 MG CAP PO SCH (18:10)
[2025-06-12 21:00] VITALS: BP 113/59; PULSE 52; RESP 17; TEMP 97.9; O2SAT 98
[2025-06-13 01:00] VITALS: BP 103/65; PULSE 50; RESP 17; TEMP 97.9; O2SAT 98
[2025-06-13 05:00] VITALS: BP 127/79; PULSE 65; RESP 18; TEMP 97.7; O2SAT 98
[2025-06-13 07:01] LABS: Anion Gap 7 (5-15); Carbon Dioxide 27 mmol/L (20-31); Chloride 107 mmol/L (98-107); Potassium 4.1 mmol/L (3.5-5.1); Sodium 141 mmol/L (136-145)
[2025-06-13 07:02] LABS: Calcium 9.5 mg/dL (8.7-10.4)
[2025-06-13 07:07] LABS: BUN/Creatinine Ratio 8.5 (10.0-20.0); Blood Urea Nitrogen 7 mg/dL (9-23); Glucose 93 mg/dL (74-106)
[2025-06-13 08:55] VITALS: BP 120/72; PULSE 60; RESP 18; TEMP 98.1; O2SAT 99
[2025-06-13 12:48] VITALS: BP 119/61; PULSE 59; RESP 16; TEMP 97.5; O2SAT 99
[2025-06-13 16:46] VITALS: BP 115/60; PULSE 70; RESP 16; TEMP 98.2; O2SAT 98
--- NOTE | 2025-06-13 17:08 | DVHPNRES ---
Progress Note Date Seen: Jun 13, 2025 Resident Creating Document: SAMANTHA VILLELA RESIDENT Medical Necessity Reason Pt with a Central, PICC or Fol: No Subjective Review of Systems Patient is a 24-year-old male who has a past medical history of asthma, presents to the ED with chief complaint of abdominal pain since the last 2 days. The pain is in the right lower quadrant radiating to the right flank,, crampy, 8/10 intensity, did not improve on taking ibuprofen. Patient had the same pain on Wednesday but he took [place] and it improved the pain but today morning the pain started again in the right lower quadrant after which he came to the ER for further evaluation. Patient denies any nausea, fever, chills, vomiting, constipation, but he complains of having diarrhea since 2 days. He does not complain of dysuria, urgency, frequency, he also denies any blood in the urine. He has no known drug allergies. Patient seen at bedside. Patient alert x3, he still complains of pain in the right flank, denies any dysuria, blood in the urine, nausea, vomiting, diarrhea. Ongoing straining of urine, waiting for passage of stone. If no improvement of pain and passage of stone, possible lithotripsy tomorrow. Objective vital signs Vital Sign Date Time Temp Pulse Resp B/P (MAP) Pulse Ox O2 Delivery O2 Flow Rate FiO2 06/13/25 16:46 98.2 70 16 115/60 (78) 98 98.2 06/13/25 08:05 Room Air* 0 21 Total Intake and Output 06/12/25 06/12/25 06/13/25 15:00 23:00 07:00 Intake Total 840 ml 800 ml Output Total 850 ml 1050 ml 200 ml Balance -850 ml -210 ml 600 ml medications Current Medications Medications Dose Ordered Sig/Miguel Route Start Time Stop Time Status Last Admin Dose Admin Acetaminophen/ Hydrocodone Bitart 1 tab Q4HPRN PRN PO 06/11/25 16:15 06/12/25 18:16 1 TAB Hydromorphone HCl 0.25 mg Q6HPRN PRN IV 06/11/25 16:15 06/13/25 15:58 0.25 MG Ketorolac Tromethamine 30 mg Q8HPRN PRN IV 06/11/25 16:15 06/16/25 16:14 06/12/25 10:44 30 MG Tamsulosin HCl 0.4 mg QPM PO 06/12/25 18:00 06/12/25 18:10 0.4 MG Examination General: Patient alert and oriented in person, place and time. Patient following commands. HEENT: Normocephalic, atraumatic, moist mucous membranes Respiratory/pulmonary: Clear lungs bilaterally, vesicular murmurs present in almost all lung ang, no associated crackles or wheezes. Cardiovascular: Normal heart sounds S1 and S2 with no associated murmurs Abdomen: Abdomen nondistended, there is pain to palpation in right lower Quadrant, and right flank , no palpable masses. Extremities: There is no peripheral edema present at the lower extremities. Peripheral Pulses: 3+ Radial (R). 3+ Radial (L). 3+ Dorsalis pedis (R). 3+ Dorsalis pedis(L) Skin: No rashes or pruritus, there is no sacral edema present at this time. Neurological: Intact cranial nerves with no focal neurologic deficits laboratory and microbiology Laboratory Tests 06/13/25 06:16 06/12/25 06:04 Test 06/13/25 06:16 Range/Units Serum Glucose 93 74-106 mg/dL Problem List/Assessment/Plan Problem List/Assessment/Plan #Right nephrolithiasis with right-sided hydrouretronephrosis - Abdominal CT shows : Moderate right hydroureteronephrosis secondary to a 4 mm proximal right ureteral calculus, Other nonobstructing bilateral renal calculi as described. Bladder wall thickening with surrounding stranding likely representing cystitis, Small amount of free pelvic fluid, Colonic diverticula - Urology evaluated the patient and recommended ,expulsive measures, aggressive fluids, strain urine, pain meds, and possible lithotripsy if no improvement. - Patient is on clear liquid diet and switched to Regular diet - Tamsulosin 0.4 mg p.o. at HS - IV mannitol given to strain urine - IV Toradol 30 mg Q 8 p.r.n., IV hydromorphone 0.25 mg q.6 p.r.n. and [place] 5/325 mg q.4 PRN for pain # History of bronchial asthma - nebulized albuterol as needed # Polysubstance abuse disorder - counseled patient regarding cessation and rehabilitation Goals of care discussed with the patient for more than 19 minutes: full code Plan discussed with Dr. Browning Plan discussed with: Patient My Orders My Orders Orders - SAMANTHA VILLELA Procedure Category Date Status Time Regular Diet DIET 06/13/25 Transmitted Lunch Date of Service: Jun 13, 2025 Billing Provider: SOILA BROWNING MD Common Visit Codes: [id number] INP/OBS CARE(HIGH) SAMANTHA VILLELA Jun 13, 2025 17:08 SOILA BROWNING MD Jun 13, 2025 22:09
--- NOTE | 2025-06-13 17:45 | DVHPN2 ---
Progress Note - Dictate Date Seen: Jun 13, 2025 Medical Necessity Reason Pt with a Central, PICC or Fol: No Medical Necessity Reason Patient continues to require hospitalization for renal colic. Moderate right hydroureteronephrosis secondary to a 4 mm proximal right ureteral calculus. Other nonobstructing bilateral renal calculi as described. Subjective Still having pain 6/10 vital signs Vital Sign Date Time Temp Pulse Resp B/P (MAP) Pulse Ox O2 Delivery O2 Flow Rate FiO2 06/13/25 17:35 70 16 115/60 06/13/25 16:46 98.2 98 98.2 06/13/25 08:05 Room Air* 0 21 Total Intake and Output 06/12/25 06/12/25 06/13/25 15:00 23:00 07:00 Intake Total 840 ml 800 ml Output Total 850 ml 1050 ml 200 ml Balance -850 ml -210 ml 600 ml medications Current Medications Medications Dose Ordered Sig/Miguel Route Start Time Stop Time Status Last Admin Dose Admin Acetaminophen/ Hydrocodone Bitart 1 tab Q4HPRN PRN PO 06/11/25 16:15 06/12/25 18:16 1 TAB Hydromorphone HCl 0.25 mg Q6HPRN PRN IV 06/11/25 16:15 06/13/25 15:58 0.25 MG Ketorolac Tromethamine 30 mg Q8HPRN PRN IV 06/11/25 16:15 06/16/25 16:14 06/12/25 10:44 30 MG Tamsulosin HCl 0.4 mg QPM PO 06/12/25 18:00 06/13/25 17:33 0.4 MG objective Right CVAT laboratory and microbiology Laboratory Tests 06/13/25 06:16 06/12/25 06:04 Test 06/13/25 06:16 Range/Units Serum Glucose 93 74-106 mg/dL Problem List 4 mm right proximal ureteral calculus with mild hydronephrosis Assessment/Plan Lithotripsy machine is not available until Wednesday morning. Patient will be placed on scheduled for right extracorporeal shockwave lithotripsy Plan discussed with: Patient, Other ASA CLEMONS MD Jun 13, 2025 17:45
[2025-06-13] MEDS: MANNITOL FTV 25% 12.5 GM/50 ML 50 ML IV ONE (18:47)
--- NOTE | 2025-06-13 19:13 | DVH ---
RENAL ULTRASOUND REASON FOR EXAM: Hydronephrosis COMPARISON: None TECHNIQUE: Real-time sector scans in multiple planes were obtained over the kidneys, ureters and ermias dder. FINDINGS: The right kidney measures 11.0 cm. The left kidney measures 10.3 cm. No mass is identifie d. There is mild right hydronephrosis. There is no appreciable left hydronephrosis. The urinary blad vivi is within normal limits. Incidental note is made of increased hepatic echogenicity. IMPRESSION: Mild right hydronephrosis.
[2025-06-13 21:00] VITALS: BP 118/81; PULSE 58; RESP 17; TEMP 97.8; O2SAT 99
[2025-06-14] VITALS (11 sets, daily range): BP systolic 106–131; BP diastolic 60–82; PULSE 50–77; RESP 13–20; TEMP 97.6–98.9; O2SAT 96–100
--- NOTE | 2025-06-14 05:47 | DVH ---
CHEST RADIOGRAPH Indication: 4 mm right ureteral stone Technique: Single frontal view of the chest was obtained Comparison: None FINDINGS: Lines and Tubes: None Lungs: No focal consolidation. Pleura: No effusion. No pneumothorax. Cardiomediastinal contours: Unremarkable Bones: No acute osseous abnormality. IMPRESSION: 1. No acute cardiopulmonary disease.
[2025-06-14 08:20] LABS: Chloride 106 mmol/L (98-107); Potassium 4.0 mmol/L (3.5-5.1); Sodium 139 mmol/L (136-145)
[2025-06-14 08:21] LABS: Anion Gap 8 (5-15); Carbon Dioxide 25 mmol/L (20-31)
[2025-06-14 08:22] LABS: Calcium 9.6 mg/dL (8.7-10.4)
[2025-06-14 08:25] LABS: INR 0.99 (0.9-1.15); Partial Thromboplastin Time 28.3 SEC (24.5-34.5); Prothrombin Time 10.5 sec (9.3-11.8)
[2025-06-14 08:26] LABS: Glucose 91 mg/dL (74-106)
[2025-06-14 08:27] LABS: BUN/Creatinine Ratio 9.1 (10.0-20.0)
[2025-06-14 08:31] LABS: Blood Urea Nitrogen 7 mg/dL (9-23)
--- NOTE | 2025-06-14 08:45 | DVHPNRES ---
Progress Note Date Seen: Jun 14, 2025 Resident Creating Document: SAMANTHA VILLELA RESIDENT Medical Necessity Reason Pt with a Central, PICC or Fol: No Subjective Review of Systems Patient is a 24-year-old male who has a past medical history of asthma, presents to the ED with chief complaint of abdominal pain since the last 2 days. The pain is in the right lower quadrant radiating to the right flank,, crampy, 8/10 intensity, did not improve on taking ibuprofen. Patient had the same pain on Wednesday but he took [place] and it improved the pain but today morning the pain started again in the right lower quadrant after which he came to the ER for further evaluation. Patient denies any nausea, fever, chills, vomiting, constipation, but he complains of having diarrhea since 2 days. He does not complain of dysuria, urgency, frequency, he also denies any blood in the urine. He has no known drug allergies. Patient seen at bedside. He is alert x3 call complains of right lower quadrant right flank pain which is 6/10 in intensity, He denies any stone passage, any dysuria, or blood in the urine, nausea, vomiting, dizziness. Urology on board, Right nephrostomy tube placement done. Possible lithotripsy tomorrow. Objective vital signs Vital Sign Date Time Temp Pulse Resp B/P (MAP) Pulse Ox O2 Delivery O2 Flow Rate FiO2 06/14/25 05:00 98.1 53 17 113/67 (82) 97 98.1 06/13/25 20:00 Room Air* 0 21 Total Intake and Output 06/13/25 06/13/25 06/14/25 15:00 23:00 07:00 Intake Total 1090 ml 750 ml Output Total 300 ml Balance 1090 ml 450 ml medications Current Medications Medications Dose Ordered Sig/Miguel Route Start Time Stop Time Status Last Admin Dose Admin Acetaminophen/ Hydrocodone Bitart 1 tab Q4HPRN PRN PO 06/11/25 16:15 06/12/25 18:16 1 TAB Hydromorphone HCl 0.25 mg Q6HPRN PRN IV 06/11/25 16:15 06/13/25 22:42 0.25 MG Ketorolac Tromethamine 30 mg Q8HPRN PRN IV 06/11/25 16:15 06/16/25 16:14 06/12/25 10:44 30 MG Tamsulosin HCl 0.4 mg QPM PO 06/12/25 18:00 06/13/25 17:33 0.4 MG Examination General: Patient alert and oriented in person, place and time. Patient following commands. HEENT: Normocephalic, atraumatic, moist mucous membranes Respiratory/pulmonary: Clear lungs bilaterally, vesicular murmurs present in almost all lung ang, no associated crackles or wheezes. Cardiovascular: Normal heart sounds S1 and S2 with no associated murmurs Abdomen: Abdomen nondistended,Right Lower Quadrant pain and Right Flank pain, no palpable masses. Extremities: There is no peripheral edema present at the lower extremities. Peripheral Pulses: 3+ Radial (R). 3+ Radial (L). 3+ Dorsalis pedis (R). 3+ Dorsalis pedis(L) Skin: No rashes or pruritus, there is no sacral edema present at this time. Neurological: Intact cranial nerves with no focal neurologic deficits laboratory and microbiology Laboratory Tests 06/14/25 06:44 06/12/25 06:04 Test 06/14/25 06:44 Range/Units Serum Glucose 91 74-106 mg/dL Problem List/Assessment/Plan Problem List/Assessment/Plan #Right nephrolithiasis with right-sided hydrouretronephrosis - Abdominal CT shows : Moderate right hydroureteronephrosis secondary to a 4 mm proximal right ureteral calculus, Other nonobstructing bilateral renal calculi as described. Bladder wall thickening with surrounding stranding likely representing cystitis, Small amount of free pelvic fluid, Colonic diverticula - Urology evaluated the patient and recommended ,expulsive measures, aggressive fluids, strain urine, pain meds, and possible lithotripsy Tomorrow if no improvement. - Patient is on clear liquid diet and switched to Regular diet - Tamsulosin 0.4 mg p.o. at HS - IV mannitol given to strain urine - IV Toradol 30 mg Q 8 p.r.n., IV hydromorphone 0.25 mg q.6 p.r.n. and [place] 5/325 mg q.4 PRN for pain - Right Nephrostomy tube placment done # History of bronchial asthma - nebulized albuterol as needed # Polysubstance abuse disorder - counseled patient regarding cessation and rehabilitation Goals of care discussed with the patient for more than 19 minutes: full code Plan discussed with Dr. Browning Plan discussed with: Patient My Orders My Orders Orders - SAMANTHA VILLELA Procedure Category Date Status Time Regular Diet DIET 06/13/25 Transmitted Lunch Kub Abdomen Single XY 06/14/25 Logged View 05:23 Date of Service: Jun 14, 2025 Billing Provider: SOILA BROWNING MD Common Visit Codes: [id number] INP/OBS CARE(HIGH) SAMANTHA VILLELA Jun 14, 2025 08:45 SOILA BROWNING MD Jun 17, 2025 16:02
--- NOTE | 2025-06-14 12:46 | DVH ---
Date: 06/14/2025 12:00 PM Examination: XY KUB ABDOMEN SINGLE VIEW History: 4 MM STONE FU, pain Comparison: 06/11/2025 TECHNIQUE: Frontal views of the abdomen was obtained. FINDINGS: Bowel gas pattern is unremarkable. Punctate radiopaque density measuring 4 mm over the expected regio n of the right kidney may represent a renal stone. Moderate stool burden. The lung bases are unremarkable. No acute osseous abnormality identified. IMPRESSION: Punctate radiopaque density measuring 4 mm over the expected region of the right kidney may represent a renal stone. Moderate stool burden.
[2025-06-14] MEDS: IODIXANOL 320MG/ML 100ML BTL IV ONE (13:58)
[2025-06-14] MEDS: fentaNYL CITRATE 100 MCG/2 ML VL ONE ×3 (14:07→14:53)
[2025-06-14] MEDS: MIDAZOLAM HCL 2MG/2ML 2ml VIAL (1mg/ml) ONE ×2 (14:07→15:21)
[2025-06-14] MEDS: LIDOCAINE 2%HCL (LOCAL ANESTH.) INJ 20ML MDV ONE (14:07)
[2025-06-14] MEDS: cefTRIAXone 1GM/50ML D5W 50 ML IV ONE (14:15)
--- NOTE | 2025-06-14 15:41 | DVH ---
PROCEDURE: Genitourinary catheter placement Procedural Personnel Attending physician(s): Jeff Valentine Fellow physician(s): None Resident physician(s): None Advanced practice provider(s): None Pre-procedure diagnosis: Right hydronephrosis Post-procedure diagnosis: Same Indication: Provision of access to the collecting system No Additional clinical history: None Complications: No immediate complications. IMPRESSION: Right nephrostomy tube placement. Plan: Flush drain with 10 cc normal saline twice daily until urine clears, then once per day to maintain pa tency. Hemorrhagic precautions due to patient significant discomfort resulting in difficulty accessing minim ally dilated system. Trend Hb/Hct q6 hours with low threshold for CTA abdomen if concern for perineph rylee hemorrhage. PROCEDURE SUMMARY - Target organ: Unilateral seminole kidney - Image-guided placement of genitourinary catheter(s) - Additional procedure(s): None PROCEDURE DETAILS: Pre-procedure Consent: Informed consent for the procedure including risks, benefits and alternatives was obtained a nd time-out was performed prior to the procedure. Preparation: The site was prepared and draped using maximal sterile barrier technique including cutan eous antisepsis. Anesthesia/sedation Level of anesthesia/sedation: Moderate sedation (conscious sedation) Anesthesia/sedation administered by: Independent trained observer under attending supervision with co ntinuous monitoring of the patient s level of consciousness and physiologic status Total intra-service sedation time (minutes): 60 Genitourinary catheter placement Side:Right seminole Local anesthesia was administered. A needle was advanced into a lower pole calyx under ultrasound and fluoroscopy guidance. A wire was advanced, the tract was serially dilated and a nephrostomy tube was placed . Contrast injection was performed. Genitourinary catheter placed: 8.5 Fr multipurpose drain Findings: Minimal right collecting system dilation. Redemonstrated 4mm proximal ureteral stone with passage of contrast into the mid and distal ureter. External catheter securement: Non-absorbable suture and adhesive anchoring device Additional genitourinary system intervention Side:NA Genitourinary intervention: None Location of intervention: Not applicable Device used: Not applicable Description of intervention: Not applicable Post-intervention findings: Not applicable Contrast Contrast agent: Omnipaque 350 Contrast volume (mL): 25 Radiation Dose Fluoroscopy time (minutes): 5.2 Reference air kerma (mGy): 74 Kerma area product (Not provided by imaging equipment) Additional Details Additional description of procedure: None Registry event: A/1/e Device used: Not applicable Equipment details: None Specimens removed: None. A sample was not sent for analysis. Estimated blood loss (mL): Less than 10 Standardized report: [email or web address] Attestation Signer name: Jeff Valentine I attest that I was present for the entire procedure. I reviewed the stored images and agree with the report as written.
--- NOTE | 2025-06-14 15:41 | DVH ---
PROCEDURE: Genitourinary catheter placement Procedural Personnel Attending physician(s): Jeff Valentine Fellow physician(s): None Resident physician(s): None Advanced practice provider(s): None Pre-procedure diagnosis: Right hydronephrosis Post-procedure diagnosis: Same Indication: Provision of access to the collecting system No Additional clinical history: None Complications: No immediate complications. IMPRESSION: Right nephrostomy tube placement. Plan: Flush drain with 10 cc normal saline twice daily until urine clears, then once per day to maintain pa tency. Hemorrhagic precautions due to patient significant discomfort resulting in difficulty accessing minim ally dilated system. Trend Hb/Hct q6 hours with low threshold for CTA abdomen if concern for perineph rylee hemorrhage. PROCEDURE SUMMARY - Target organ: Unilateral wrangell kidney - Image-guided placement of genitourinary catheter(s) - Additional procedure(s): None PROCEDURE DETAILS: Pre-procedure Consent: Informed consent for the procedure including risks, benefits and alternatives was obtained a nd time-out was performed prior to the procedure. Preparation: The site was prepared and draped using maximal sterile barrier technique including cutan eous antisepsis. Anesthesia/sedation Level of anesthesia/sedation: Moderate sedation (conscious sedation) Anesthesia/sedation administered by: Independent trained observer under attending supervision with co ntinuous monitoring of the patient s level of consciousness and physiologic status Total intra-service sedation time (minutes): 60 Genitourinary catheter placement Side:Right wrangell Local anesthesia was administered. A needle was advanced into a lower pole calyx under ultrasound and fluoroscopy guidance. A wire was advanced, the tract was serially dilated and a nephrostomy tube was placed . Contrast injection was performed. Genitourinary catheter placed: 8.5 fr multipurpose drain Findings: Minimal right collecting system dilation. Redemonstrated 4 mm proximal ureteral stone with passage of contrast into the mid and distal ureter. External catheter securement: Non-absorbable suture and adhesive anchoring device Additional genitourinary system intervention Side:NA Genitourinary intervention: None Location of intervention: Not applicable Device used: Not applicable Description of intervention: Not applicable Post-intervention findings: Not applicable Contrast Contrast agent: Omnipaque 350 Contrast volume (mL): 25 Radiation Dose Fluoroscopy time (minutes): 5.2 Reference air kerma (mGy): 74 Kerma area product (Not provided by imaging equipment) Additional Details Additional description of procedure: None Registry event: A/1/e Device used: Not applicable Equipment details: None Specimens removed: None. A sample was not sent for analysis. Estimated blood loss (mL): Less than 10 Standardized report: [email or web address] Attestation Signer name: Jeff Valentine I attest that I was present for the entire procedure. I reviewed the stored images and agree with the report as written.
[2025-06-15 05:00] VITALS: BP 113/77; PULSE 54; RESP 18; TEMP 97.8; O2SAT 98
[2025-06-15 07:26] LABS: Hematocrit 46.0 % (41.0-53.0); Hemoglobin 15.9 g/dL (13.5-17.5); Mean Corpuscular Hemoglobin 30.1 pg (28.0-32.0); Mean Corpuscular Volume 87.0 fL (80.0-100.0); Nucleated Red Blood Cells % 0.0 %
[2025-06-15 07:30] LABS: Chloride 106 mmol/L (98-107); Potassium 3.8 mmol/L (3.5-5.1); Sodium 140 mmol/L (136-145)
[2025-06-15 07:31] LABS: Anion Gap 8 (5-15); Calcium 9.6 mg/dL (8.7-10.4); Carbon Dioxide 26 mmol/L (20-31)
[2025-06-15 07:36] LABS: BUN/Creatinine Ratio 12.0 (10.0-20.0); Blood Urea Nitrogen 9 mg/dL (9-23); Glucose 88 mg/dL (74-106)
[2025-06-15 09:00] VITALS: BP 120/72; PULSE 67; RESP 18; TEMP 97.6; O2SAT 99
[2025-06-15] MEDS: CIPROFLOXACIN 400MG/200ML 200 ML IV ONE (09:03)
--- NOTE | 2025-06-15 09:14 | DVHNC2 ---
Procedure - OPERATIVE REPORT Pre-op. Diagnosis: right proximal ureteral calculus, 5 mm right hydronephrosis, status post right percutaneous nephrostomy tube placement per IR Post-op. Diagnosis: Same as pre-op diagnosis Operation: Extracorporeal Shockwave Lithotripsy right antegrade nephrostogram Anesthesia: General Indications: Patient was found to have symptomatic Urolithiasis. Patient is here to undergo ESWL therapy. Informed Consent: The procedure was explained to the patient. It's risks include but not limited to infection, bleeding, and damage to the kidney. Patient fully understood and signed the consent. Other options such as watchful waiting, Ureteroscopy, Percutaneous surgery and open surgery were also discussed. Details of Procedure: Under satisfactory anesthesia, the patient was positioned on the lithotripsy table. Using fluoroscopy the stone was localized. Starting at low energy levels, shockwave treatment was commenced. The energy level was gradually increased and stone was fragmented. Once the treatment was completed, patient was then taken off the lithotripsy table and sent to recovery room in stable condition. Specimens: None Complications: None Findings: Stone Laterality: right proximal ureteral calculus 5 mm Shocks Delivered: 2400 shocks Max Power settin Fragmentation Quality: Well nephrostogram confirms passage of the contrast into the bladder. Nephrostomy tube is turned off after the lithotripsy Notes: if patient tolerates the nephrostomy tube on the off position times 24 hours, it may be removed and patient may be discharged ASA CLEMONS MD Jun 15, 2025 09:14
[2025-06-15] MEDS ORDERED: MIDAZOLAM HCL 2MG/2ML 2ml VIAL (1mg/ml) ONE (10:03)
[2025-06-15] MEDS ORDERED: PROPOFOL 10 MG/ML 20 ML IV ONE (10:03)
[2025-06-15] MEDS ORDERED: fentaNYL CITRATE 100 MCG/2 ML VL ONE (10:03)
[2025-06-15] MEDS ORDERED: METOCLOPRAMIDE HCL 5MG/ml INJ 2ml VIAL ONE (10:04)
[2025-06-15] MEDS ORDERED: ONDANSETRON HCL 4 MG/2 ML VIAL ONE (10:04)
[2025-06-15] MEDS ORDERED: LIDOCAINE 2% (LOCAL ANESTH.) PF 5ml SDV ONE (10:04)
[2025-06-15 10:43] VITALS: PULSE 68; RESP 14; O2SAT 99
[2025-06-15] MEDS: ONDANSETRON HCL 4 MG/2 ML VIAL IV ONE (11:00)
[2025-06-15] MEDS: KETOROLAC TROMETH 30 MG/ML 1ML VIAL IV ONE (11:00)
[2025-06-15] MEDS ORDERED: HYDROmorphone HCL 2 MG/ML VL/or syr IV PRN (11:00)
[2025-06-15 13:00] VITALS: BP 125/76; PULSE 71; RESP 18; TEMP 98; O2SAT 98
--- NOTE | 2025-06-15 13:23 | DVHPNRES ---
Progress Note Date Seen: Jun 15, 2025 Resident Creating Document: SAMANTHA VILLELA RESIDENT Medical Necessity Reason Pt with a Central, PICC or Fol: No Subjective Review of Systems Patient is a 24-year-old male who has a past medical history of asthma, presents to the ED with chief complaint of abdominal pain since the last 2 days. The pain is in the right lower quadrant radiating to the right flank,, crampy, 8/10 intensity, did not improve on taking ibuprofen. Patient had the same pain on Wednesday but he took [place] and it improved the pain but today morning the pain started again in the right lower quadrant after which he came to the ER for further evaluation. Patient denies any nausea, fever, chills, vomiting, constipation, but he complains of having diarrhea since 2 days. He does not complain of dysuria, urgency, frequency, he also denies any blood in the urine. He has no known drug allergies. Patient seen at bedside. Patient appears alert x3, he still complains of right lower quadrant pain and right flank pain. The right nephrostomy tube placement was done, which has pinkish fluid. Lithotripsy is scheduled for today. He denies any fever, chills, nausea, vomiting, dizziness, headaches, dysuria, frequency, urgency, constipation, diarrhea. Objective vital signs Vital Sign Date Time Temp Pulse Resp B/P (MAP) Pulse Ox O2 Delivery O2 Flow Rate FiO2 06/15/25 11:30 68 15 117/57 (77) 99 06/15/25 10:43 Mask 6.0 99 06/15/25 10:43 98.2 98.2 Total Intake and Output 06/14/25 06/14/25 06/15/25 15:00 23:00 07:00 Intake Total 0 ml 600 ml 400 ml Output Total 350 ml 750 ml Balance 0 ml 250 ml -350 ml medications Current Medications Medications Dose Ordered Sig/Miguel Route Start Time Stop Time Status Last Admin Dose Admin Acetaminophen/ Hydrocodone Bitart 1 tab Q4HPRN PRN PO 06/11/25 16:15 06/14/25 20:02 1 TAB Hydromorphone HCl 0.25 mg Q6HPRN PRN IV 06/11/25 16:15 06/15/25 08:00 0.25 MG Ketorolac Tromethamine 30 mg Q8HPRN PRN IV 06/11/25 16:15 06/16/25 16:14 06/15/25 13:16 30 MG Tamsulosin HCl 0.4 mg QPM PO 06/12/25 18:00 06/14/25 17:53 0.4 MG Examination General: Patient alert and oriented in person, place and time. Patient following commands. HEENT: Normocephalic, atraumatic, moist mucous membranes Respiratory/pulmonary: Clear lungs bilaterally, vesicular murmurs present in almost all lung ang, no associated crackles or wheezes. Cardiovascular: Normal heart sounds S1 and S2 with no associated murmurs Abdomen: Abdomen nondistended, Pain in right lower quadrent and right flank, Right Nephrostomy tube with Pinkish fluid. Extremities: There is no peripheral edema present at the lower extremities. Peripheral Pulses: 3+ Radial (R). 3+ Radial (L). 3+ Dorsalis pedis (R). 3+ Dorsalis pedis(L) Skin: No rashes or pruritus, there is no sacral edema present at this time. Neurological: Intact cranial nerves with no focal neurologic deficits laboratory and microbiology Laboratory Tests 06/15/25 05:50 Test 06/15/25 05:50 Range/Units Serum Glucose 88 74-106 mg/dL Problem List/Assessment/Plan Problem List/Assessment/Plan #Bilateral nephrolithiasis with right-sided hydrouretronephrosis - Abdominal CT shows : Moderate right hydroureteronephrosis secondary to a 4 mm proximal right ureteral calculus, Other nonobstructing bilateral renal calculi as described. Bladder wall thickening with surrounding stranding likely representing cystitis, Small amount of free pelvic fluid, Colonic diverticula - Urology evaluated the patient and recommended ,expulsive measures, aggressive fluids, strain urine, pain meds, and possible lithotripsy . - Patient is on clear liquid diet and switched to Regular diet - Tamsulosin 0.4 mg p.o. at HS - IV mannitol given to strain urine - IV Toradol 30 mg Q 8 p.r.n., IV hydromorphone 0.25 mg q.6 p.r.n. and [place] 5/325 mg q.4 PRN for pain - Right Nephrostomy tube placment with pinkish fluid - Lithotripsy done today with pain management # History of bronchial asthma - nebulized albuterol as needed # Polysubstance abuse disorder - counseled patient regarding cessation and rehabilitation Goals of care discussed with the patient for more than 19 minutes: full code Plan discussed with Dr. Browning Plan discussed with: Patient My Orders My Orders Orders - SAMANTHA VILLELA RESIDENT Procedure Category Date Status Time Percutaneous XY 06/14/25 Resulted Nephrostomy 15:03 Date of Service: Jun 15, 2025 Billing Provider: SOILA BROWNING MD Common Visit Codes: [id number] INP/OBS CARE(HIGH) SAMANTHA VILLELA Jun 15, 2025 13:23 SOILA BROWNING MD Jun 17, 2025 16:07
[2025-06-15 17:00] VITALS: BP 122/66; PULSE 63; RESP 18; TEMP 97.5; O2SAT 99
[2025-06-15 21:00] VITALS: BP 123/73; PULSE 69; RESP 18; TEMP 97.8; O2SAT 98
[2025-06-16 01:00] VITALS: BP 113/65; PULSE 59; RESP 16; TEMP 98.1; O2SAT 99
[2025-06-16 05:00] VITALS: BP 111/71; PULSE 62; RESP 17; TEMP 98.3; O2SAT 97
[2025-06-16 07:54] LABS: Hematocrit 44.1 % (41.0-53.0); Hemoglobin 15.3 g/dL (13.5-17.5); Mean Corpuscular Hemoglobin 30.4 pg (28.0-32.0); Mean Corpuscular Volume 87.3 fL (80.0-100.0); Nucleated Red Blood Cells % 0.1 %
[2025-06-16 08:08] LABS: Anion Gap 9 (5-15); Carbon Dioxide 27 mmol/L (20-31); Chloride 104 mmol/L (98-107); Potassium 3.9 mmol/L (3.5-5.1); Sodium 140 mmol/L (136-145)
[2025-06-16 08:09] LABS: Calcium 9.6 mg/dL (8.7-10.4)
[2025-06-16 08:14] LABS: BUN/Creatinine Ratio 14.4 (10.0-20.0); Blood Urea Nitrogen 13 mg/dL (9-23); Glucose 85 mg/dL (74-106)
[2025-06-16 09:00] VITALS: BP 114/66; PULSE 62; RESP 18; TEMP 98.4; O2SAT 97
[2025-06-16 13:00] VITALS: BP 120/79; PULSE 64; RESP 18; TEMP 97.8; O2SAT 98
[2025-06-16] MEDS ORDERED: ONDANSETRON HCL 4 MG/2 ML VIAL IV ONE (14:30)
[2025-06-16 16:34] VITALS: BP 112/63; PULSE 62; RESP 18; TEMP 98.6; O2SAT 98
--- NOTE | 2025-06-16 16:56 | DVHPNRES ---
Progress Note Date Seen: Jun 16, 2025 Resident Creating Document: BRIDGETT ARCHIBALD RESIDENT Medical Necessity Reason Pt with a Central, PICC or Fol: No Subjective Review of Systems Patient is a 24-year-old male with prior medical history of asthma, who presents to the ED with chief complaint of abdominal pain. Patient stated the pain started 2 days prior and is described as crampy, concentrated in right lower quadrant radiating to the right flank, 8/10 intensity, which improved slightly with [place]. However, the pain returned the following day prompted him to seek medical care. Additionally, patient refers Patient denies any nausea, fever, chills, vomiting, constipation, but he complains of having diarrhea since 2 days. He does not complain of dysuria, urgency, frequency, he also denies any blood in the urine. He has no known drug allergies. Patient seen at bedside. He states that he is still in pain, states that it is mainly concentrated around his nephrostomy tube. Additionally, he refers some dizziness when ambulating to the bathroom. Currently denies fever, dysuria, nausea, and palpitations. His vitals have been stable, and labs today are within normal range. Nephrostomy tube connected to bag with minimal amount of blood and almost no urine. The patient states that he wants the nephrostomy tube removed before discharge, as he believes he will not be able to return to work with it in. Throughout the afternoon, patient vomited twice for which zofran has been ordered. Will continue monitoring patient's pain and will possibly discharge tomorrow pending urology's decision on nephrostomy tube. Objective vital signs Vital Sign Date Time Temp Pulse Resp B/P (MAP) Pulse Ox O2 Delivery O2 Flow Rate FiO2 06/16/25 16:34 98.6 62 18 112/63 (79) 98 98.6 06/16/25 08:00 Room Air* 0 21 Total Intake and Output 06/15/25 06/15/25 06/16/25 15:00 23:00 07:00 Intake Total 300 ml 280 ml 1200 ml Output Total 150 ml 350 ml Balance 150 ml 280 ml 850 ml medications Current Medications Medications Dose Ordered Sig/Miguel Route Start Time Stop Time Status Last Admin Dose Admin Acetaminophen/ Hydrocodone Bitart 1 tab Q4HPRN PRN PO 06/11/25 16:15 06/14/25 20:02 1 TAB Hydromorphone HCl 0.25 mg Q6HPRN PRN IV 06/11/25 16:15 06/16/25 12:21 0.25 MG Tamsulosin HCl 0.4 mg QPM PO 06/12/25 18:00 06/16/25 16:51 0.4 MG Examination General: Patient alert and oriented in person, place and time. Patient following commands. HEENT: Normocephalic, atraumatic, moist mucous membranes Respiratory/pulmonary: Clear lungs bilaterally, vesicular murmurs present in almost all lung ang, no associated crackles or wheezes. Cardiovascular: Normal heart sounds S1 and S2 with no associated murmurs Abdomen: Abdomen nondistended, Pain in right lower quadrent and right flank, Right Nephrostomy tube, with minimal blood and no urine. Extremities: There is no peripheral edema present at the lower extremities. Peripheral Pulses: 3+ Radial (R). 3+ Radial (L). 3+ Dorsalis pedis (R). 3+ Dorsalis pedis(L) Skin: No rashes or pruritus, there is no sacral edema present at this time. Neurological: Intact cranial nerves with no focal neurologic deficits laboratory and microbiology Laboratory Tests 06/16/25 04:22 Test 06/16/25 04:22 Range/Units Serum Glucose 85 74-106 mg/dL Problem List/Assessment/Plan Problem List/Assessment/Plan Bilateral nephrolithiasis with right-sided hydrouretronephrosis - Abdominal CT shows : Moderate right hydroureteronephrosis secondary to a 4 mm proximal right ureteral calculus, Other nonobstructing bilateral renal calculi as described. Bladder wall thickening with surrounding stranding likely representing cystitis, Small amount of free pelvic fluid, Colonic diverticula - Urology evaluated the patient and recommended ,expulsive measures, aggressive fluids, strain urine, pain meds, and possible lithotripsy . - Patient is on clear liquid diet and switched to Regular diet - Tamsulosin 0.4 mg p.o. at HS - IV mannitol given to strain urine - IV Toradol 30 mg Q 8 p.r.n., IV hydromorphone 0.25 mg q.6 p.r.n. and [place] 5/325 mg q.4 PRN for pain - Right Nephrostomy tube placment with pinkish fluid - Lithotripsy done today with pain management History of bronchial asthma - Albuterol PRN Polysubstance abuse disorder - Counseled patient regarding cessation and rehabilitation for over 20 minutes Case discussed with Dr. Browning. Goals of care discussed with the patient for over 20 minutes, states he understands and agrees. Plan discussed with: Patient My Orders My Orders Orders - BRIDGETT ARCHIBALD RESIDENT Procedure Category Date Status Time Ondansetron Hcl PHA 06/16/25 Transmitted (Zofran) 17:00 Date of Service: Jun 16, 2025 Billing Provider: SOILA BROWNING MD Common Visit Codes: [id number] INP/OBS CARE(HIGH) BRIDGETT ARCHIBALD RESIDENT Jun 16, 2025 16:56 SOILA BROWNING MD Jun 17, 2025 16:16
[2025-06-16] MEDS ORDERED: ONDANSETRON HCL 4 MG/2 ML VIAL IV PRN (17:00)
[2025-06-16 21:00] VITALS: BP 115/73; PULSE 60; RESP 18; TEMP 97.8; O2SAT 98
[2025-06-17 01:00] VITALS: BP 116/71; PULSE 69; RESP 18; TEMP 98; O2SAT 97
[2025-06-17 05:00] VITALS: BP_SYST 122; BP_SYST 164; BP_DIAS 115; BP_DIAS 77; PULSE 65; RESP 17; TEMP 98; O2SAT 98; O2SAT 99
[2025-06-17 09:00] VITALS: BP 131/81; PULSE 65; RESP 18; TEMP 97.5; O2SAT 100
--- NOTE | 2025-06-17 11:24 | DVHPN2 ---
Progress Note - Dictate Date Seen: Jun 17, 2025 Medical Necessity Reason Pt with a Central, PICC or Fol: No Subjective pain greatly improved after BM vital signs Vital Sign Date Time Temp Pulse Resp B/P (MAP) Pulse Ox O2 Delivery O2 Flow Rate FiO2 06/17/25 09:00 97.5 65 18 131/81 (98) 100 97.5 06/17/25 08:00 Room Air* 0 21 Total Intake and Output 06/16/25 06/16/25 06/17/25 15:00 23:00 07:00 Intake Total 1000 ml 600 ml Output Total 1400 ml Balance -400 ml 600 ml medications Current Medications Medications Dose Ordered Sig/Miguel Route Start Time Stop Time Status Last Admin Dose Admin Acetaminophen/ Hydrocodone Bitart 1 tab Q4HPRN PRN PO 06/11/25 16:15 06/17/25 09:05 1 TAB Hydromorphone HCl 0.25 mg Q6HPRN PRN IV 06/11/25 16:15 06/17/25 05:46 0.25 MG Tamsulosin HCl 0.4 mg QPM PO 06/12/25 18:00 06/16/25 16:51 0.4 MG Ondansetron HCl 4 mg Q6HPRN PRN IV 06/16/25 17:00 objective had dilaudid IV last night. Toradol didnt help laboratory and microbiology Laboratory Tests 06/16/25 04:22 Test 06/16/25 04:22 Range/Units Serum Glucose 85 74-106 mg/dL Assessment/Plan PCN removed at bedside. pt tolerated well. 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
[2025-06-17 12:52] VITALS: BP 121/73; PULSE 70; RESP 18; TEMP 97.6; O2SAT 98
[2025-06-17 17:00] VITALS: BP 120/76; PULSE 60; RESP 16; TEMP 98; O2SAT 96
--- NOTE | 2025-06-17 19:48 | DVHPNRES ---
Progress Note Date Seen: Jun 17, 2025 Resident Creating Document: SAMANTHA VILLELA RESIDENT Medical Necessity Reason Pt with a Central, PICC or Fol: No Subjective Review of Systems Patient is a 24-year-old male with prior medical history of asthma, who presents to the ED with chief complaint of abdominal pain. Patient stated the pain started 2 days prior and is described as crampy, concentrated in right lower quadrant radiating to the right flank, 8/10 intensity, which improved slightly with [place]. However, the pain returned the following day prompted him to seek medical care. Additionally, patient refers Patient denies any nausea, fever, chills, vomiting, constipation, but he complains of having diarrhea since 2 days. He does not complain of dysuria, urgency, frequency, he also denies any blood in the urine. He has no known drug allergies. Patient seen at bedside. Patient is alert x3, comfortable, he reports he is feeling better than yesterday but has mild pain in the Right flank, and denies any nausea, vomiting, diarrhea, headache, dizziness. Nephrostomy tube was removed. Patient has mild hematuria in the urine. Possible discharge tomorrow. Objective vital signs Vital Sign Date Time Temp Pulse Resp B/P (MAP) Pulse Ox O2 Delivery O2 Flow Rate FiO2 06/17/25 17:00 98.0 60 16 120/76 (91) 96 98.0 06/17/25 08:00 Room Air* 0 21 Total Intake and Output 06/16/25 06/16/25 06/17/25 15:00 23:00 07:00 Intake Total 1000 ml 600 ml Output Total 1400 ml Balance -400 ml 600 ml medications Current Medications Medications Dose Ordered Sig/Miguel Route Start Time Stop Time Status Last Admin Dose Admin Acetaminophen/ Hydrocodone Bitart 1 tab Q4HPRN PRN PO 06/11/25 16:15 06/17/25 17:56 1 TAB Tamsulosin HCl 0.4 mg QPM PO 06/12/25 18:00 06/17/25 17:56 0.4 MG Ondansetron HCl 4 mg Q6HPRN PRN IV 06/16/25 17:00 Examination General: Patient alert and oriented in person, place and time. Patient following commands. HEENT: Normocephalic, atraumatic, moist mucous membranes Respiratory/pulmonary: Clear lungs bilaterally, vesicular murmurs present in almost all lung ang, no associated crackles or wheezes. Cardiovascular: Normal heart sounds S1 and S2 with no associated murmurs Abdomen: Abdomen nondistended, Mild pain in Right Flank, no palpable masses. Extremities: There is no peripheral edema present at the lower extremities. Peripheral Pulses: 3+ Radial (R). 3+ Radial (L). 3+ Dorsalis pedis (R). 3+ Dorsalis pedis(L) Skin: No rashes or pruritus, there is no sacral edema present at this time. Neurological: Intact cranial nerves with no focal neurologic deficits laboratory and microbiology Laboratory Tests 06/16/25 04:22 Test 06/16/25 04:22 Range/Units Serum Glucose 85 74-106 mg/dL Problem List/Assessment/Plan Problem List/Assessment/Plan #Bilateral nephrolithiasis with right-sided hydrouretronephrosis - Abdominal CT shows : Moderate right hydroureteronephrosis secondary to a 4 mm proximal right ureteral calculus, Other nonobstructing bilateral renal calculi as described. Bladder wall thickening with surrounding stranding likely representing cystitis, Small amount of free pelvic fluid, Colonic diverticula - Urology evaluated the patient and recommended ,expulsive measures, aggressive fluids, strain urine, pain meds, and possible lithotripsy . - Patient is on clear liquid diet and switched to Regular diet - Tamsulosin 0.4 mg p.o. at HS - IV mannitol given to strain urine - IV Toradol 30 mg Q 8 p.r.n., IV hydromorphone 0.25 mg q.6 p.r.n. and [place] 5/325 mg q.4 PRN for pain - Right Nephrostomy tube placment with pinkish fluid - Lithotripsy done today with pain management - Nephrostomy tube removed # History of bronchial asthma - nebulized albuterol as needed # Polysubstance abuse disorder - counseled patient regarding cessation and rehabilitation Goals of care discussed with the patient for more than 19 minutes: full code Plan discussed with Dr. Browning Plan discussed with: Patient Date of Service: Jun 17, 2025 Billing Provider: SOILA BROWNING MD Common Visit Codes: 98556-[id number] INP/OBS CARE(HIGH) SAMANTHA VILLELA RESIDENT Jun 17, 2025 19:48 SOILA BROWNING MD Jun 19, 2025 13:49
[2025-06-17 22:54] VITALS: BP 127/75; PULSE 73; RESP 18; TEMP 98.1; O2SAT 98
[2025-06-18 01:00] VITALS: BP 117/74; PULSE 75; RESP 18; TEMP 98; O2SAT 99
[2025-06-18 04:51] VITALS: BP 112/70; PULSE 68; RESP 19; TEMP 98; O2SAT 99
[2025-06-18 09:00] VITALS: BP 113/75; PULSE 60; RESP 16; TEMP 98; O2SAT 98
[2025-06-18 13:01] VITALS: BP 125/80; PULSE 63; RESP 16; TEMP 98; O2SAT 99
--- NOTE | 2025-06-18 13:46 | DVHDSRES ---
Discharge Summary Date of Admission Resident Creating Document: SAMANTHA VILLELA RESIDENT Jun 11, 2025 at 15:43 Date of Discharge: Jun 18, 2025 Admitting Diagnosis #Bilateral nephrolithiasis with right-sided hydrouretronephrosis Labs/Diagnostic Data: Laboratory Results Test 06/16/25 04:22 06/14/25 06:44 06/11/25 10:00 White Blood Count 7.2 10^3/uL (4.4-10.8) Red Blood Count 5.05 10^6/uL (4.5-5.90) Hemoglobin 15.3 g/dL (13.5-17.5) Hematocrit 44.1 % (41.0-53.0) Mean Corpuscular Volume 87.3 fL (80.0-100.0) Mean Corpuscular Hemoglobin 30.4 pg (28.0-32.0) Mean Corpuscular Hemoglobin Concent 34.8 g/dL (32.0-36.0) Red Cell Distribution Width 13.4 % (11.8-14.3) Platelet Count 155 10^3/uL (140-450) Mean Platelet Volume 8.9 fL (6.9-10.8) Neutrophils (%) (Auto) 67.9 % (37.0-80.0) Lymphocytes (%) (Auto) 23.4 % (10.0-50.0) Monocytes (%) (Auto) 7.0 % (0.0-12.0) Eosinophils (%) (Auto) 1.2 % (0.0-7.0) Basophils (%) (Auto) 0.5 % (0.0-2.0) Neutrophils # (Auto) 4.9 10 ^3/uL (1.6-8.6) Lymphocytes # (Auto) 1.7 10 ^3/uL (0.4-5.4) Monocytes # (Auto) 0.5 10 ^3/uL (0-1.3) Eosinophils # (Auto) 0.1 10 ^3/uL (0-0.8) Basophils # (Auto) 0 10 ^3/uL (0-0.2) Nucleated Red Blood Cells 0.1 % Sodium Level 140 mmol/L (136-145) Potassium Level 3.9 mmol/L (3.5-5.1) Chloride Level 104 mmol/L (98-107) Carbon Dioxide Level 27 mmol/L (20-31) Anion Gap 9 (5-15) Blood Urea Nitrogen 13 mg/dL (9-23) Creatinine 0.90 mg/dL (0.700-1.30) Glomerular Filtration Rate Calc 121 mL/min (>90) BUN/Creatinine Ratio 14.4 (10.0-20.0) Serum Glucose 85 mg/dL (74-106) Calcium Level 9.6 mg/dL (8.7-10.4) Prothrombin Time 10.5 sec (9.3-11.8) Prothrombin Time INR 0.99 (0.9-1.15) Activated Partial Thromboplast Time 28.3 SEC (24.5-34.5) Urine Color Light-yellow (Yellow) Urine Clarity Clear (Clear) Urine pH 5.5 (5.0-9.0) Urine Specific [place] 1.017 (1.001-1.035) Urine Protein Negative (Negative) Urine Ketones Negative (Negative) Urine Blood Negative /uL (Negative) Urine Nitrite Negative (Negative) Urine Bilirubin Negative (Negative) Urine Urobilinogen Normal mg/dL (Negative) Urine Leukocyte Esterase Negative /uL (Negative) Urine RBC 2 /hpf (0 - 3) Urine Microscopic WBC 2 /HPF (0-3) Urine Squamous Epithelial Cells Few /hpf (<5) Urine Bacteria None seen /hpf (None Seen) Urine Mucus Few (None Seen) Urine Glucose Normal mg/dL (Normal) Urine Opiates Screen Neg (NEGATIVE) Urine Fentanyl Screen Neg (NEGATIVE) Urine Barbiturates Screen Neg (NEGATIVE) Urine Phencyclidine Screen Neg (NEGATIVE) Urine Amphetamines Screen Neg (NEGATIVE) Urine Benzodiazepines Screen Neg (NEGATIVE) Urine Cocaine Screen Neg (NEGATIVE) Urine Cannabinoids Screen Pos (NEGATIVE) Other Laboratory Tests 06/16/25 04:22 Brief Hx & Hospital Course: Patient is a 24-year-old male with prior medical history of asthma, who presents to the ED with chief complaint of abdominal pain. Patient stated the pain started 2 days prior and is described as crampy, concentrated in right lower quadrant radiating to the right flank, 8/10 intensity, which improved slightly with [place]. However, the pain returned the following day prompted him to seek medical care. Additionally, patient refers Patient denies any nausea, fever, chills, vomiting, constipation, but he complains of having diarrhea since 2 days. He does not complain of dysuria, urgency, frequency, he also denies any blood in the urine. He has no known drug allergies. Brief hospital course: Patient has nephrolithiasis with right-sided hydroureteronephrosis, on CT Abdomin it shows Moderate right hydroureteronephrosis secondary to a 4 mm proximal right ureteral calculus, Other nonobstructing bilateral renal calculi as described. Bladder wall thickening with surrounding stranding likely representing cystitis, Small amount of free pelvic fluid, Colonic diverticula. Urology was consulted and recommended expulsive measures, aggressive fluids, strain urine, pain meds, possible lithotripsy if stone does not us. Patient was switched from clear liquid diet is regular diet and tolerated well. Patient was given tamsulosin 0.4 mg p.o., IV mannitol to strain urine, IV Toradol 30 mg Q 8 p.r.n., IV morphine 0.25 mg Q 6 p.r.n., [place] 5/325 mg Q 4 p.r.n. for pain. Right nephrostomy tube was placed and initially revealed pinkish fluid, after the procedure nephrostomy tube was removed and currently he complained of mild pain in that area. Lithotripsy was done, initially he had hematuria but at discharge he has no hematuria. For his bronchial asthma he was counseled to use his nebulized albuterol as needed. For his polysubstance abuse disorder he was counseled on regarding cessation and rehabilitation for over 20 minutes. Patient is stable for discharge, patient communicated understanding of his condition and discharge plan. And agrees to follow-up with the discharge Clinic in 1 week. General: Patient alert and oriented in person, place and time. Patient following commands. HEENT: Normocephalic, atraumatic, moist mucous membranes Respiratory/pulmonary: Clear lungs bilaterally, vesicular murmurs present in almost all lung ang, no associated crackles or wheezes. Cardiovascular: Normal heart sounds S1 and S2 with no associated murmurs Abdomen: Abdomen nondistended, Mild pain in Right Flank, no palpable masses. Extremities: There is no peripheral edema present at the lower extremities. Peripheral Pulses: 3+ Radial (R). 3+ Radial (L). 3+ Dorsalis pedis (R). 3+ Dorsalis pedis(L) Skin: No rashes or pruritus, there is no sacral edema present at this time. Neurological: Intact cranial nerves with no focal neurologic deficits Operations or Procedures Indication: RLQ abd pain, tender mcburney Technique: CT axial images of the abdomen and pelvis are obtained without contrast. Coronal and sagittal reformats were obtained. Radiation Dose Information: CTDI volume is 11.11 mGy. Dose-length product is 603.95 mGy*cm Comparison: None FINDINGS: There is limited interpretation of the abdomen and pelvis without administration of intravenous contrast. Lung bases demonstrate no pleural effusion. Adrenal glands, spleen, pancreas unremarkable in shape. Liver unremarkable in shape. No CT evidence for cholelithiasis. The right kidney demonstrates moderate right hydroureteronephrosis secondary to a proximal right ureteral calculus measuring 4 mm. Other nonobstructing right renal calculi up to 2 mm. Nonobstructing left renal calculi up to 3 mm. Stomach is partially distended. Small bowel loops are normal in caliber. Moderate volume stool in the colon. Normal appendix. Colonic diverticula. Bladder partially distended. Bladder wall thickening with surrounding stranding. Trace free pelvic fluid. No inguinal lymphadenopathy. No aggressive osseous process. IMPRESSION: Moderate right hydroureteronephrosis secondary to a 4 mm proximal right ureteral calculus. Other nonobstructing bilateral renal calculi as described. Bladder wall thickening with surrounding stranding likely representing cystitis. Small amount of free pelvic fluid. Colonic diverticula Other findings as described. - CHEST RADIOGRAPH Indication: 4 mm right ureteral stone Technique: Single frontal view of the chest was obtained Comparison: None FINDINGS: Lines and Tubes: None Lungs: No focal consolidation. Pleura: No effusion. No pneumothorax. Cardiomediastinal contours: Unremarkable Bones: No acute osseous abnormality. IMPRESSION: 1. No acute cardiopulmonary disease. - RENAL ULTRASOUND REASON FOR EXAM: Hydronephrosis COMPARISON: None TECHNIQUE: Real-time sector scans in multiple planes were obtained over the kidneys, ureters and bladder. FINDINGS: The right kidney measures 11.0 cm. The left kidney measures 10.3 cm. No mass is identified. There is mild right hydronephrosis. There is no appreciable left hydronephrosis. The urinary bladder is within normal limits. Incidental note is made of increased hepatic echogenicity. IMPRESSION: Mild right hydronephrosis. -------- Date: 06/14/2025 12:00 PM Examination: XY KUB ABDOMEN SINGLE VIEW History: 4 MM STONE FU, pain Comparison: 06/11/2025 TECHNIQUE: Frontal views of the abdomen was obtained. FINDINGS: Bowel gas pattern is unremarkable. Punctate radiopaque density measuring 4 mm over the expected region of the right kidney may represent a renal stone. Moderate stool burden. The lung bases are unremarkable. No acute osseous abnormality identified. IMPRESSION: Punctate radiopaque density measuring 4 mm over the expected region of the right kidney may represent a renal stone. Moderate stool burden. PROCEDURE: Genitourinary catheter placement Procedural Personnel Attending physician(s): Jeff Valentine Fellow physician(s): None Resident physician(s): None Advanced practice provider(s): None Pre-procedure diagnosis: Right hydronephrosis Post-procedure diagnosis: Same Indication: Provision of access to the collecting system No Additional clinical history: None Complications: No immediate complications. IMPRESSION: Right nephrostomy tube placement. Plan: Flush drain with 10 cc normal saline twice daily until urine clears, then once per day to maintain patency. Hemorrhagic precautions due to patient significant discomfort resulting in difficulty accessing minimally dilated system. Trend Hb/Hct q6 hours with low threshold for CTA abdomen if concern for perinephric hemorrhage. PROCEDURE SUMMARY - Target organ: Unilateral k[place]el kidney - Image-guided placement of genitourinary catheter(s) - Additional procedure(s): None PROCEDURE DETAILS: Pre-procedure Consent: Informed consent for the procedure including risks, benefits and alternatives was obtained and time-out was performed prior to the procedure. Preparation: The site was prepared and draped using maximal sterile barrier technique including cutaneous antisepsis. Anesthesia/sedation Level of anesthesia/sedation: Moderate sedation (conscious sedation) Anesthesia/sedation administered by: Independent trained observer under attending supervision with continuous monitoring of the patient s level of consciousness and physiologic status Total intra-service sedation time (minutes): 60 Genitourinary catheter placement Side:Right k[place] Local anesthesia was administered. A needle was advanced into a lower pole calyx under ultrasound and fluoroscopy guidance. A wire was advanced, the tract was serially dilated and a nephrostomy tube was placed . Contrast injection was performed. Genitourinary catheter placed: 8.5 fr multipurpose drain Findings: Minimal right collecting system dilation. Redemonstrated 4 mm proximal ureteral stone with passage of contrast into the mid and distal ureter. External catheter securement: Non-absorbable suture and adhesive anchoring device Additional genitourinary system intervention Side:NA Genitourinary intervention: None Location of intervention: Not applicable Device used: Not applicable Description of intervention: Not applicable Post-intervention findings: Not applicable Contrast Contrast agent: Omnipaque 350 Contrast volume (mL): 25 Radiation Dose Fluoroscopy time (minutes): 5.2 Reference air kerma (mGy): 74 Kerma area product (Not provided by imaging equipment) Additional Details Additional description of procedure: None Registry event: A/1/e Device used: Not applicable Equipment details: None Specimens removed: None. A sample was not sent for analysis. Estimated blood loss (mL): Less than 10 Standardized report: [email or web address] Attestation Signer name: Jeff Valentine I attest that I was present for the entire procedure. I reviewed the stored images and agree with the report as written. Condition at Discharge: Stable Final Diagnosis/Problems List #Bilateral nephrolithiasis with right-sided hydrouretronephrosis # History of bronchial asthma # Polysubstance abuse disorder Discharge Disposition: Home Discharge Instruct/Medications Diet: Regular Activity: No Restrictions, As Tolerated Follow Up/Referral: Follow up with discharge clinic in 1 week Medications: As Per EMR Scheduled Tamsulosin Hcl (Tamsulosin Hcl), 1 CAP PO DAILY Scheduled PRN Tramadol HCl (Tramadol HCl), 50 MG PO Q8HPRN PRN Discharge Statement: "Patient was advised to return to the ER or call 911 if any headaches, dizziness, shortness of breath, chest pain, abdominal pain, bleeding, fevers, or worsening of medical condition. Patient was counseled about treatment plan, medications, possible side effects, patientverbalized understanding. All questions were answered to the best of my ability. This discharge took greater then 30 minutes in planning, reviewing documentation, counseling the patient, and discussing with other team members." ASSESSMENT ASSESSMENT Assessment Bilater Nephrolithiasis with Right sided hydrouretronephrosis Date of Service: Jun 18, 2025 Billing Provider: SOILA BROWNING MD Common Visit Codes: 68738-CHB/OBS DISCH DAY >30min SAMANTHA VILLELA Jun 18, 2025 13:46 SOILA BROWNING MD Jun 19, 2025 13:50
[2025-06-18] MEDS ORDERED: TAMS0.4C39 PO (14:20)
[2025-06-18 15:32] VITALS: BP 125/80; PULSE 63; RESP 16; TEMP 98; O2SAT 99
[2025-06-18] MEDS ORDERED: TRAM-626 PO (15:52)
== END 2025-06-18 16:35 | disposition home or self-care (01) | DRG 465 ==
LOC: ER 10:36 → OVERFLOW 15:43 → WEST WING 21:57
PROVIDERS: ADMIT Student in an Organized Health Care Education/Training Program; ATTEND Student in an Organized Health Care Education/Training Program
PROC: 0T9030Z Drainage of Right Kidney with Drainage Device, Percutaneous Approach (ICD-10-PCS; 2025-06-14)
PROC: BT111ZZ Fluoroscopy of Right Kidney using Low Osmolar Contrast (ICD-10-PCS; 2025-06-15)
PROC: 0TF6XZZ Fragmentation in Right Ureter, External Approach (ICD-10-PCS; principal; 2025-06-15 10:01)
DX: N13.2 Hydronephrosis with renal and ureteral calculous obstruction (principal); F12.90 Cannabis use, unspecified, uncomplicated; F19.10 Other psychoactive substance abuse, uncomplicated; K57.30 Diverticulosis of large intestine without perforation or abscess without bleeding; F17.210 Nicotine dependence, cigarettes, uncomplicated; J45.909 Unspecified asthma, uncomplicated; Z79.899 Other long term (current) drug therapy
CPT/HCPCS: 36415; 50432; 71045; 74018; 74176; 74425; 76775; 76942; 80048; 80307; 81001; 85025; 85610; 85730; 86850; 86900; 86901; 96360; 99152; G0378; J1885; J2003; J2250; J2405; J2704; Q9967

== ENCOUNTER 2025-09-07 07:20 | Emergency (ER) | payer MEDICAID ==
[~2025-09-07] VITALS: Ht 182.9 cm; Wt 86.6 kg
[~2025-09-07 07:20] MED LIST: TRAM-626 PO
--- NOTE | 2025-09-07 07:33 | ED.PDOC ---
HPI Comments 25-year-old male presents here with 4-5 days of chest discomfort. He states it is sharp points to middle of his chest associated with shortness of breath. He states around the same time he has had a cough, runny nose migraine headache, body aches, vomiting and diarrhea. He has has no sick contacts. Denies any fevers. He does have young children at home but states they are not sick. Patient took ibuprofen this morning at 5:00 a.m.. He has been able to keep down fluids. Chief Complaint: Chest Pain Time Seen by MD: 07:30 Primary Care Provider: ABBY RIVERA Reviewed Notes: Nurses Notes, Medications, Allergies Allergies: Coded Allergies: No Known Drug Allergy (Verified Allergy, Unknown, 01/07/21) Home Meds Active Scripts Tramadol HCl (Tramadol HCl) 50 Mg Tab, 50 MG PO Q8HPRN PRN for 3 Days, #9 TAB Prov:SOILA BROWNING MD 06/18/25 Information Source: Patient Mode of Arrival: Ambulatory Severity: Moderate Timing: Days Duration: Since onset, Days Prehospital treatment: None Location: Chest (L), Substernal Radiation: No Radiation Quality: Sharp Cardiac Risk Factors: None PE Risk Factors: None History of: None Associated Signs and Symptoms: None Past Medical History PAST MEDICAL HISTORY: Denies Surgical History: Denies all surgeries Family History Family History: Reviewed,noncontributory to illness, Unknown Social History Smoker: Cigarettes Alcohol: Denies ETOH Use Drugs: Marijuana Lives In: Home Constitutional: denies: chills, diaphoresis, fatigue, fever, malaise, sweats, weakness, others EENTM: denies: blurred vision, double vision, ear bleeding, ear discharge, ear drainage, ear pain, ear ringing, eye pain, eye redness, hearing loss, mouth pain, mouth swelling, nasal discharge, nose bleeding, nose congestion, nose pain, photophobia, tearing, throat pain, throat swelling, voice changes, others Respiratory: reports: cough; denies: hemoptysis, orthopnea, SOB at rest, shortness of breath, SOB with excertion, stridor, wheezing, others Cardiovascular: reports: chest pain; denies: dizzy spells, diaphoresis, Dyspnea on exertion, edema, irregular heart beat, left arm pain, lightheadedness, palpitations, PND, syncope, others Gastrointestinal: reports: diarrhea, nausea, vomiting; denies: abdomen distended, abdominal pain, blood streaked bowels, constipated, dysphagia, difficulty swallowing, hematemesis, melena, poor appetite, poor fluid intake, rectal bleeding, rectal pain, others Genitourinary: denies: burning, dysuria, flank pain, frequency, hematuria, incontinence, penile discharge, penile sore, pain, testicle pain, testicle swelling, urgency, others Neurological: denies: dizziness, fainting, headache, left sided numbness, left sided weakness, numbness, paresthesia, pre-existing deficit, right sided numbness, right sided weakness, seizure, speech problems, tingling, tremors, weakness, others Musculoskeletal: denies: back pain, gout, joint pain, joint swelling, muscle pain, muscle stiffness, neck pain, others Integumetry: denies: bruises, change in color, change in hair/nails, dryness, laceration, lesions, lumps, rash, wounds, others Allergic/Immunocompromised: denies: Difficulty Healing, Frequent Infections, Hives, Itching, others Hematologic/Lymphatic: denies: anemia, blood clots, easy bleeding, easy bruising, swollen glands, others Endocrine: denies: excessive hunger, excessive sweating, excessive thirst, excessive urination, flushing, intolerance to cold, intolerance to heat, unexplained weight gain, unexplained weight loss, others Psychiatric: denies: anxiety, bipolar disorder, depression, hopeless, panic disorder, schizophrenia, sleepless, suicidal, others All Other Systems: Reviewed and Negative Physical Exam General Appearance: Mild Distress, Normal, Other (Sounds congested) HEENT: Normal ENT Inspection, Pharynx Normal, TMs Normal Neck: Full Range of Motion, Non-Tender, Normal, Normal Inspection Respiratory: Chest Non-Tender, Lungs Clear, No Accessory Muscle Use, No Respiratory Distress, Other (Diminished breath sounds bilaterally no wheezing) Cardiovascular: No Edema, No JVD, No Murmur, No Gallop, Normal Peripheral Pulses, Regular Rate/Rhythm Breast Exam: Deferred Gastrointestinal: No Organomegaly, Non Tender, No Pulsatile Mass, Normal Bowel Sounds, Soft Genitalia: Deferred Pelvic: Deferred Rectal: Deferred Extremities: No calf tenderness, Normal capillary refill, Normal inspection, Normal range of motion, Non-tender, No pedal edema Musculoskeletal : Apperance: Normal Neurologic: Alert, No Motor Deficits, Normal Affect, Normal Mood, No Sensory Deficits Cerebellar Function: Normal Reflexes: Normal Skin: Dry, Normal Color, Warm Lymphatic: No Adenopathy EKG EKG #1: Pulse Rate (adult): 82 [place]: Normal Cardiac Rhythm: NSR Block: None Hypertrophy: None ST: Normal Comments Rate of [address] rhythm no significant ST changes. Artifact in lead 2 and 3 EKG #2: Comments 8:19 a.m. 2nd EKG rate of 65 sinus rhythm no significant ST changes PA-C Was a procedure done? Was a procedure done?: No CP Differential Dx Differential Diagnosis: Anxiety / Panic Attack Differential Diagnosis: N/A Differential Diagnosis: Costochondritis, Pneumonia, Pneumothorax, Pulmonary Em bolus Comment Influenza, COVID, pneumonia, URI, viral syndrome X-Ray, Labs, Meds, VS Vital Signs Date Time Temp Pulse Resp B/P (MAP) Pulse Ox O2 Delivery O2 Flow Rate FiO2 09/07/25 08:24 98.2 09/07/25 08:19 65 09/07/25 08:04 18 98 Room Air* 0 21 09/07/25 07:43 82 09/07/25 07:31 82 09/07/25 07:22 97.9 96 18 138/62 96 97.9 Lab Test 09/07/25 08:00 Range/Units Troponin I High Sensitivity 3 L </=54 ng/L Current Medications Medications (Trade) Dose Ordered Sig/Miguel Route Start Time Stop Time Status Last Admin Albuterol (Ventolin Medneb) 5 mg ONCE ONCE NEB 09/07/25 07:45 09/07/25 07:46 DC 09/07/25 08:04 Ipratropium [place] (Atrovent Medneb) 0.5 mg ONCE ONCE NEB 09/07/25 07:45 09/07/25 07:46 DC 09/07/25 08:04 Acetaminophen (Tylenol Tablet) 650 mg ONCE ONCE PO 09/07/25 07:45 09/07/25 07:46 DC 09/07/25 08:[address] [address] Ph: [phone] DIAGNOSTIC IMAGING Diagnostic Imaging Report : [id number] Signed PATIENT: KARAN SMITH ACCT: [id number] UNIT: [id number] : 2000 LOC: ER ROOM / BED: / AGE / SEX: 25 / M ADM STATUS: REG ER SERVICE ORDERING PHYSICIAN: JOSE LUIS CARDOSO MD PROCEDURE(s): CXR2 - CHEST TWO VIEWS ROUTINE REASON: Shortness of breath ORDER NUMBER(s): [id number], ACCESSION NUMBER(s): [id number] CHEST RADIOGRAPH Indication: Shortness of breath Technique: Frontal and lateral view of the chest was obtained Comparison: XY CHEST XRAY 1 VIEW on DOS: 06/14/25, XY CHEST XRAY 1 VIEW on DOS: 11/17/24 FINDINGS: Lines and Tubes: None Lungs: Clear Pleura: No effusion. No pneumothorax. Cardiomediastinal contours: Unremarkable Bones: Unremarkable IMPRESSION: No evidence of acute disease. ATED BY: BRAULIO BROWN MD DICTATED DATE/TIME: 09/07/25814 SIGNED BY: BRAULIO BROWN MD SIGNED DATE/TIME: 09/07/25814 CC: 25-year-old male presents here with chest discomfort that he reports is sharp points in the mid chest. With no radiation. He states he has had this for 4-5 days. Patient also presents with multiple other symptoms including cough runny nose headache, vomiting and diarrhea and body aches. Suspect likely viral syndrome. EKG with no evidence of acute ST changes. Considered possible pneumonia given his chest discomfort. At this time I have ordered a chest x- ray, diminished breath sounds on exam therefore med nebs has been ordered, acetaminophen for body aches and also COVID and influenza testing. Troponin has been ordered in his pending. Advised patient that he likely has a viral syndrome despite even if COVID and influenza are negative. Advised him he will need to maintain hydration. I offered him Zofran p.o. prescription however he refused stating that the vomiting is not so bad.ymptoms worsen or persist. At this time chest x-ray is negative for acute pneumonia. Troponin is negative. We are still pending results of influenza and COVID testing. At this time I have written his phone number done and advised him I will call him with his results. Patient agreeable to the plan. Advised him to maintain hydration at home rest and if symptoms worsen or persist to please return back to the ER. Otherwise he is to follow up with his PCP in 2-3 days. Time of 1ST Reevaluation: 08:00 Reevaluation 1ST: Unchanged Patient Education/Counseling: Diagnosis, Treatment, Prognosis Family Education/Counseling: No Family Present SEPSIS Sepsis Screen Date sepsis recognized/suspect: Sep 07, 2025 Time Sepsis recognized/suspect: 723 Recent Procedure: No On Antibiotic Therapy: No Respiratory Rate >20: No Heart Rate >90: Yes Temp<36 C (96.8 F) or >38.3 C: No SBP <90 or MAP <65 mmHG: No New Acute Mental Status Change: No Is the patient on CPAP, BIPAP,: No Physician Orders Electrocardigram (09/07/25 07:21) Electrocardigram (09/07/25 08:21) Electrocardigram (09/07/25 10:21) Troponin-I Hs (09/07/25 08:21) Troponin-I Hs (09/07/25 10:21) Chest Two Views Routine (09/07/25 07:35) Covid19 Antigen Sam[place] (09/07/25 ) Rapid Influenza A&B (09/07/25 07:41) Vital Signs Date Time Temp Pulse Resp B/P (MAP) Pulse Ox O2 Delivery O2 Flow Rate FiO2 09/07/25 08:24 98.2 09/07/25 08:19 65 09/07/25 08:04 18 98 Room Air* 0 21 09/07/25 07:43 82 09/07/25 07:31 82 09/07/25 07:22 97.9 96 18 138/62 96 97.9 Medications Medications Dose Ordered Sig/Miguel Route Start Time Stop Time Status Last Admin Dose Admin Acetaminophen 650 mg ONCE ONCE PO 09/07/25 07:45 09/07/25 07:46 DC 09/07/25 08:24 Albuterol 5 mg ONCE ONCE NEB 09/07/25 07:45 09/07/25 07:46 DC 09/07/25 08:04 Ipratropium [place] 0.5 mg ONCE ONCE NEB 09/07/25 07:45 09/07/25 07:46 DC 09/07/25 08:04 Departure 1 Departure Time of Disposition: 09:13 Impression: Primary Impression: Viral syndrome Additional Impression: Chest pain Qualified Codes: R07.9 - Chest pain, unspecified Disposition: 01 HOME / SELF CARE / HOMELESS Condition: Stable Additional Instructions: Follow up with the primary care physician in 2-3 days. Return to the ER if symptoms worsen or persist. It is important to maintain hydration with plenty of fluids. Discharged With: Self Critical Care Note Critical Care Time?: No Stability Stability form required: No Heart Score Heart Score: Heart Score Response (Comments) Value History Slightly Suspicious 0 EKG Normal 0 Age <45 0 Risk Factors No known risk factors 0 Troponin Normal limit 0 Total 0 I personally scribed for JOSE LUIS CARDOSO MD ([email or web address]) on 09/07/25 at 07:43. Electronically submitted by Ran Reyez ([email or web address]). I personally scribed for JOSE LUIS CARDOSO MD ([email or web address]) on 09/07/25 at 08:28. Electronically submitted by Ran Reyez ([email or web address]). JOSE LUIS CARDOSO MD Sep 07, 2025 07:33
[2025-09-07] MEDS: IPRATROPIUM BROM 0.5 MG/2.5ML INH SOL NEB ONE (08:04)
[2025-09-07] MEDS: ALBUTEROL SULF 2.5 MG/0.5ML(0.5%) NEB SOLN NEB ONE (08:04)
--- NOTE | 2025-09-07 08:17 | DVH ---
CHEST RADIOGRAPH Indication: Shortness of breath Technique: Frontal and lateral view of the chest was obtained Comparison: XY CHEST XRAY 1 VIEW on DOS: 06/14/25, XY CHEST XRAY 1 VIEW on DOS: 11/17/24 FINDINGS: Lines and Tubes: None Lungs: Clear Pleura: No effusion. No pneumothorax. Cardiomediastinal contours: Unremarkable Bones: Unremarkable IMPRESSION: No evidence of acute disease.
[2025-09-07] MEDS: ACETAMINOPHEN 325 MG TAB PO ONE (08:24)
[2025-09-07 09:43] VITALS: BP 126/88; PULSE 66; RESP 18; TEMP 97.8; O2SAT 98
[2025-09-07 09:43] LABS: COVID19 ANTIGEN SOFIA FIA NEGATIVE (NEGATIVE)
--- NOTE | 2025-09-07 12:58 | ECG ---
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
--- NOTE | 2025-09-13 09:06 | ECG ---
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
== END 2025-09-07 09:52 | disposition home or self-care (01) ==
LOC: ER 07:20
DX: B34.9 Viral infection, unspecified (principal); R07.89 Other chest pain; F12.90 Cannabis use, unspecified, uncomplicated; F17.210 Nicotine dependence, cigarettes, uncomplicated; Z79.899 Other long term (current) drug therapy; Z20.822 Contact with and (suspected) exposure to COVID-19
CPT/HCPCS: 36415; 71046; 84484; 87426; 87804; 93005; 94640

== ENCOUNTER 2025-09-14 15:42 | Emergency (ER) | payer MEDICAID ==
[~2025-09-14] VITALS: Ht 182.9 cm; Wt 85.9 kg
[2025-09-14] MEDS ORDERED: HYDR-4902 PO (16:28)
--- NOTE | 2025-09-14 16:37 | DVH ---
CLINICAL HISTORY: low back pain TECHNIQUE: 3 views of the lumbar spine were obtained. COMPARISON: None FINDINGS: The alignment of the lumbar spine is normal. The vertebral body heights and intervertebral disc space s are well maintained. No acute fracture or dislocation is seen. IMPRESSION: NO ACUTE RADIOGRAPHIC ABNORMALITY OF THE LUMBAR SPINE.
--- NOTE | 2025-09-14 16:46 | ED.PDOC ---
History of Present Illness HPI Comments 25-year-old male with no past medical history presenting for evaluation of lower back pain over the past couple of weeks. Patient states that he does a lot of standing at work. Started with dull pain along both sides of lower back about 2 weeks ago. Has been fluctuating in intensity since then. Has been in termittently taking ibuprofen for the discomfort. Over the past few days started to feel a tingling sensation go into the right buttock and down the right leg. No numbness or weakness of the leg. No bowel or bladder incontinence. No fevers. No history of IV drug use. No history of malignancy. No preceding trauma, injury. Chief Complaint: Back Pain Time Seen by MD: 15:45 Primary Care Provider: ABBY RIVERA Allergies: Coded Allergies: No Known Drug Allergy (Verified Allergy, Unknown, 01/07/21) Home Meds Active Scripts Tramadol HCl (Tramadol HCl) 50 Mg Tab, 50 MG PO Q8HPRN PRN for 3 Days, #9 TAB Prov:SOILA BROWNING MD 06/18/25 Mode of Arrival: Ambulatory Past Medical History PAST MEDICAL HISTORY: Denies Surgical History: Denies all surgeries Family History Family History: Reviewed,noncontributory to illness, Unknown Social History Smoker: Cigarettes Alcohol: Denies ETOH Use Drugs: Marijuana Lives In: Home Constitutional: denies: chills, diaphoresis, fatigue, fever, malaise, sweats, weakness, others EENTM: denies: blurred vision, double vision, ear bleeding, ear discharge, ear drainage, ear pain, ear ringing, eye pain, eye redness, hearing loss, mouth pain, mouth swelling, nasal discharge, nose bleeding, nose congestion, nose pain, photophobia, tearing, throat pain, throat swelling, voice changes, others Respiratory: denies: cough, hemoptysis, orthopnea, SOB at rest, shortness of breath, SOB with excertion, stridor, wheezing, others Cardiovascular: denies: chest pain, dizzy spells, diaphoresis, Dyspnea on exertion, edema, irregular heart beat, left arm pain, lightheadedness, palpitations, PND, syncope, others Gastrointestinal: denies: abdomen distended, abdominal pain, blood streaked bowels, constipated, diarrhea, dysphagia, difficulty swallowing, hematemesis, melena, nausea, poor appetite, poor fluid intake, rectal bleeding, rectal pain, vomiting, others Genitourinary: denies: burning, dysuria, flank pain, frequency, hematuria, incontinence, penile discharge, penile sore, pain, testicle pain, testicle swelling, urgency, others Neurological: reports: tingling Musculoskeletal: reports: back pain Integumetry: denies: bruises, change in color, change in hair/nails, dryness, laceration, lesions, lumps, rash, wounds, others Allergic/Immunocompromised: denies: Difficulty Healing, Frequent Infections, Hives, Itching, others Hematologic/Lymphatic: denies: anemia, blood clots, easy bleeding, easy bruising, swollen glands, others Endocrine: denies: excessive hunger, excessive sweating, excessive thirst, excessive urination, flushing, intolerance to cold, intolerance to heat, unexplained weight gain, unexplained weight loss, others Psychiatric: denies: anxiety, bipolar disorder, depression, hopeless, panic disorder, schizophrenia, sleepless, suicidal, others Physical Exam General Appearance: No Apparent Distress HEENT: NOT DONE Neck: NOT DONE Respiratory: Lungs Clear, No Accessory Muscle Use Cardiovascular: Normal Peripheral Pulses, Regular Rate/Rhythm Breast Exam: Deferred Gastrointestinal: Non Tender, Normal Bowel Sounds Genitalia: Deferred Pelvic: Deferred Rectal: Deferred Extremities: No calf tenderness, Normal range of motion, Non-tender, No pedal edema Musculoskeletal : Location: Bilateral Extremity Location: Back Apperance: Tenderness: Mild Neurologic: No Motor Deficits, No Sensory Deficits Cerebellar Function: Normal Reflexes: Normal Skin: Normal Color Lymphatic: NOT DONE Was a procedure done? Was a procedure done?: No Differential Dx Considerations may include: Degenerative disc disease versus musculoskeletal spasm versus lumbosacral radiculopathy versus herniated disc X-Ray, Labs, Meds, VS Vital Signs Date Time Temp Pulse Resp B/P (MAP) Pulse Ox O2 Delivery O2 Flow Rate FiO2 09/14/25 18:54 74 20 97 Room Air* 0 21 09/14/25 18:42 98.0 86 16 125/84 (98) 97 98.0 09/14/25 15:44 97.8 101 18 137/80 98 97.8 Current Medications Medications (Trade) Dose Ordered Sig/Miguel Route Start Time Stop Time Status Last Admin Ketorolac Tromethamine (Toradol Injection) 30 mg ONCE ONCE IM 09/14/25 16:15 09/14/25 16:16 DC 09/14/25 18:47 Acetaminophen (Tylenol Tablet) 1,000 mg ONCE ONCE PO 09/14/25 16:15 09/14/25 16:16 DC 09/14/25 18:47 Lidocaine (Lidoderm 5% Topical Patch) 1 patch ONCE ONCE TOP 09/14/25 16:15 09/14/25 16:16 DC 09/14/25 18:47 Time of 1ST Reevaluation: 19:30 (Patient reports improvement of symptoms after interventions.) Reevaluation 1ST: Improved Patient Education/Counseling: Diagnosis, Treatment, Need For Follow Up Family Education/Counseling: No Family Present SEPSIS Sepsis Screen Date sepsis recognized/suspect: Sep 14, 2025 Time Sepsis recognized/suspect: 1546 Recent Procedure: No On Antibiotic Therapy: No Respiratory Rate >20: No Heart Rate >90: Yes Temp<36 C (96.8 F) or >38.3 C: No SBP <90 or MAP <65 mmHG: No New Acute Mental Status Change: No Is the patient on CPAP, BIPAP,: No SEPSIS EXCLUSION NOTE: Tachycardia noted upon arrival thought to be due to pain, discomfort. No other signs or symptoms on history or physical exam to suggest sepsis or bacterial etiology of tachycardia. Physician Orders Lumbar Spine 4+ View (09/14/25 16:11) Vital Signs Date Time Temp Pulse Resp B/P (MAP) Pulse Ox O2 Delivery O2 Flow Rate FiO2 09/14/25 18:54 74 20 97 Room Air* 0 21 09/14/25 18:42 98.0 86 16 125/84 (98) 97 98.0 09/14/25 15:44 97.8 101 18 137/80 98 97.8 Medications Medications Dose Ordered Sig/Miguel Route Start Time Stop Time Status Last Admin Dose Admin Acetaminophen 1,000 mg ONCE ONCE PO 09/14/25 16:15 09/14/25 16:16 DC 09/14/25 18:47 Ketorolac Tromethamine 30 mg ONCE ONCE IM 09/14/25 16:15 09/14/25 16:16 DC 09/14/25 18:47 Lidocaine 1 patch ONCE ONCE TOP 09/14/25 16:15 09/14/25 16:16 DC 09/14/25 18:47 Departure 1 Departure Time of Disposition: 17:32 (25-year-old male presenting for 2 weeks of intermittent atraumatic lower back pain. Although the patient had no preceding trauma, injury given new back pain that he has not previously had a lumbar spine x-ray was performed which shows no evidence of any acute bony pathology. Given bilateral lower back paraspinal muscle pain seems most likely consistent with musculoskeletal spasm. Patient with no urinary symptoms, symptoms have been ongoing for 2 weeks, does not seem consistent with UTI or pyelonephritis. Although patient has had prior history of nephrolithiasis he has radiation of discomfort down to the leg, does not seem consistent with renal colic or recurrent hydronephrosis. For this reason does not warrant any labs today. Given radiation of discomfort with paresthesias to the right lower extremity seems likely consistent with lumbosacral radiculopathy. Patient has normal neuro/motor function. Has no red flags on story. No history of IV drug use, no midline lumbar spine tenderness to palpation, no fevers, consider but do not suspect epidural abscess. Patient is ambulating steadily here, no findings on h istory or physical exam to suggest acute lumbar spine cord compromise. No indication for emergent MR imaging of the spine. Patient was treated for discomfort here with IM Toradol, oral Tylenol and topical lidocaine patch. He is stable for discharge further outpatient management. Advised to take NSAIDs as needed for discomfort. Will be given a prescription for topical lidocaine patches and gabapentin to take as needed. Will also be given a prescription for Tylenol and ibuprofen. Advised to follow up with outpatient primary care doctor as he will likely need further outpatient imaging such as an MRI to further evaluate the cause of his pain.) Impression: Primary Impression: Lumbar radiculopathy Additional Impressions: Lumbar sprain Lumbar paraspinal muscle spasm Disposition: 01 HOME / SELF CARE / HOMELESS Condition: Stable Additional Instructions: Please take Tylenol and ibuprofen together 3 times throughout the day to help with pain. Do not exceed 4000 mg of Tylenol in a 24 hour period. You were given a prescription for topical lidocaine patches to use as needed as well. You were also given a prescription for gabapentin which you can use as needed for pain shooting down to your legs. An x-ray of your lumbar spine was performed today which was within normal limits. Follow up with her outpatient primary care doctor as you may need further outpatient imaging such as an MRI to further evaluate your symptoms. e-Prescriptions Acetaminophen (Acetaminophen Extra Stren) 500 Mg Tab 1000 MG PO TID PRN for 30 Days, #90 TAB Prov: SHAKIR GUERRA MD 09/14/25 Ibuprofen (Ibuprofen) 800 Mg Tab 1 TAB PO TID PRN for 30 Days, #90 TAB 1 Refill Prov: SHAKIR GUERRA MD 09/14/25 Gabapentin (Once-Daily) (Gabapentin) 300 Mg Tab 300 MG PO QHSP PRN for 30 Days, #30 TAB Prov: SHAKIR GUERRA MD 09/14/25 Lidocaine (Lidocaine Topical Pain Pa) 4 % Pad 4 % EX DAILY PRN for 10 Days, #10 PAD Prov: SHAKIR GUERRA MD 09/14/25 Discharged With: Self Critical Care Note Critical Care Time?: No Stability Stability form required: No SHAKIR GUERRA MD Sep 14, 2025 16:46
[2025-09-14 18:42] VITALS: BP 125/84; TEMP 98
[2025-09-14] MEDS: ACETAMINOPHEN 325 MG TAB PO ONE (18:47)
[2025-09-14] MEDS: LIDOCAINE 5% TOPICAL PATCH TOP ONE (18:47)
[2025-09-14] MEDS: KETOROLAC TROMETH 60MG/2ML VIAL IM ONE (18:47)
[2025-09-14 18:54] VITALS: PULSE 74; RESP 20; O2SAT 97
[2025-09-14] MEDS ORDERED: GABA300T4 PO (20:19)
[2025-09-14] MEDS ORDERED: LIDO4PAD52 EX (20:19)
[2025-09-14] MEDS ORDERED: ACET-6 PO (20:19)
[2025-09-14] MEDS ORDERED: IBUP-1456 PO (20:19)
== END 2025-09-14 20:21 | disposition home or self-care (01) ==
LOC: ER 15:45
DX: S33.5XXA Sprain of ligaments of lumbar spine, initial encounter (principal); M54.16 Radiculopathy, lumbar region; F17.210 Nicotine dependence, cigarettes, uncomplicated; X58.XXXA Exposure to other specified factors, initial encounter; Y93.89 Activity, other specified; Y92.89 Other specified places as the place of occurrence of the external cause; Y99.8 Other external cause status
CPT/HCPCS: 72110; 96372; 99283; J1885